=== PATIENT | female | born 1955 | race African-American/Black ===

== ENCOUNTER 2019-11-20 19:18 | Inpatient (IN) ==
[2019-11-20] MEDS ORDERED: ZOFRAN IV ONE ×2 (20:00→22:31)
[2019-11-20] MEDS ORDERED: NS 1,000 ML IV ONE (20:00)
--- NOTE | 2019-11-20 20:51 | PROVIDER DOCUMENTATION ---
This chart was entered by Yolis Cochran Scribe, acting as scribe for Ese Leyva MD. HPI-Abdominal Pain/GI Problem - General Chief Complaint: Abdominal Pain Stated Complaint: abd pain Time Seen by Provider: 11/20/19 19:30 Source: patient Allergies/Adverse Reactions: Patient Allergies Allergy/AdvReac Type Severity Reaction Status Date / Time No Known Allergies Allergy Verified 04/12/15 12:24 Home Medications: Home Medication List Medication Instructions Recorded Confirmed Last Taken Type Dicyclomine [Bentyl] 10 mg PO PRN PRN 04/08/15 11/20/19 04/05/15 01:00 History Zolpidem [Ambien] 10 mg PO QHS PRN 04/08/15 11/20/19 2 Weeks Ago History ~06/22/16 Metformin E.r. [Glucophage Xr] 500 mg PO DAILY #30 tablet 07/13/16 11/20/19 Unknown Rx Ondansetron HCl [Zofran] 4 mg PO Q6H PRN #30 tablet 07/13/16 11/20/19 Unknown Rx Pantoprazole [Protonix] 40 mg PO DAILY@0700 #30 tablet 07/13/16 11/20/19 Unknown Rx - History of Present Illness-ABD Nature of Presenting Problems: pt is a 64 yr old female presenting via EMS with 4 day complaint of low abdominal pain, nausea, vomiting and constipation. pt reports she was seen by PCP yesterday for same, dx as stomach virus, no medications given. pt reports pain worsening. Abdominal Pain Onset Location: reports: other (low abdomen) Pain Radiation: reports: no radiation Quality of Pain: reports: aching, fullness, pressure Severity in ED: reports: moderate Onset/Duration: reports: 4 days ago Timing: reports: still present, getting worse Activities at Onset: reports: rest Exposure to sick contacts?: No Modifying Factors: improves with: nothing Associated Symptoms: reports: constipation, nausea, vomiting. denies: diarrhea, fever/chills, genitourinary problems Last BM: 4 days ago Dark Stools Present?: reports: none noticed Rectal Bleeding: reports: none Rectal Pain: reports: none Emesis Description: reports: clear Bruising or Bleeding Gums?: No Similar Symptoms Previously?: Yes Recently seen or treated by another doctor?: Yes ( pcp-Dr Aguilera-yesterday for same) Review of Systems - Adult - REVIEW OF SYSTEMS - ADULT Constitutional: denies: chills, fever Eyes: reports: no symptoms reported Ears, Nose, Mouth & Throat: reports: no symptoms reported Cardiovascular: denies: chest pain, palpitations, syncope Respiratory: denies: cough, dyspnea on exertion, shortness of breath Gastrointestinal: reports: abdominal pain, constipation, nausea, poor appetite, vomiting. denies: diarrhea Genitourinary: denies: dysuria, frequency, flank pain Musculoskeletal: reports: no symptoms reported Integumentary: reports: no symptoms reported Neurological: denies: dizziness/vertigo, headache/migraines, syncope Psychiatric: reports: no symptoms reported Endocrine: reports: no symptoms reported Hematologic/Lymphatic: reports: no symptoms reported Allergic/Immunologic: reports: no symptoms reported All Other Systems: Reviewed and Negative Past History - Adult - PAST MEDICAL HISTORY-ADULT Review of Records: reports: Old Records Reviewed, Nursing Assessment Review, Medications Reviewed, Social history reviewed & non-contributory. Major Childhood Illnesses: reports: denies history Cardiovascular: reports: denies history Respiratory: reports: denies history Gastrointestinal: reports: denies history Obstetrical/Gynecological: reports: denies history Genitourinary: reports: denies history Musculoskeletal: reports: denies history Neurological: reports: denies history Endocrine/Immune: reports: denies history Other Conditions: reports: denies history - IMMUNIZATION STATUS Childhood Immunizations: See Nurse Assessment Flu Vaccine: See Nurse Assessment - FAMILY HISTORY Family History: reviewed, not pertinent - SOCIAL HISTORY Smoking: denies Substance Use: denies Living Situation: alone Physical Exam-General - PHYSICAL EXAM-ADULT Initial Vital Signs Reviewed: Yes - CONSTITUTIONAL General Appearance: appears well, alert, no apparent distress - EYES Eyes: PERRL/EOMI - HEAD, EARS, NOSE, MOUTH & THROAT HENMT: normocephalic/atraumatic, moist mucous membranes, normal ENT inspection - NECK Neck: non-tender, full range of motion, supple, normal inspection - RESPIRATORY Respiratory: chest non-tender, lungs clear, normal breath sounds, no respiratory distress, no accessory muscle use - CARDIOVASCULAR Cardiovascular: normal peripheral pulses, regular rate, rhythm, no edema - GASTROINTESTINAL (ABDOMEN) Abdominal Exam: normal bowel sounds, soft, distended, tenderness (low abdomen te nderness) - LYMPHATIC Lymphatic: no adenopathy - MUSCULOSKELETAL Back Exam: normal inspection, no CVA tenderness, no vertebral tenderness Extremity: normal range of motion, non-tender, normal inspection - SKIN Integumentary: normal color, normal turgor, warm/dry - NEUROLOGIC Neurologic: grossly normal, no motor/sensory deficits - PSYCHIATRIC Psych/Mental Status: normal mood/affect Progress - PLAN OF CARE/RESULTS Progress/Plan/Lab Results: Vital Signs - 8 hr 11/20/19 19:18 Temperature 98.2 F Pulse Rate 84 Respiratory Rate 19 Blood Pressure 140/87 O2 Sat by Pulse Oximetry 100 Orders Category Date Time Status CT ABD/PELVIS W/IV CONT ONLY [CT] Stat Exams 11/20/19 20:00 Ordered CBC WITH ELECTRONIC DIFF [HEME] Stat Lab 11/20/19 19:59 Uncollected COMPREHENSIVE METABOLIC PANEL [CHEM] Stat Lab 11/20/19 19:59 Uncollected LIPASE [CHEM] Stat Lab 11/20/19 19:59 Uncollected URINALYSIS W/POSS RFLX CULT [URINALYSIS] Stat Lab 11/20/19 19:59 Uncollected URINE DRUG SCREEN Stat Lab 11/20/19 19:59 Uncollected 0.9% Sodium Chloride Inj [Ns] 1,000 ml Med 11/20/19 20:00 Active IV 999 mls/hr Ondansetron [Zofran] Med 11/20/19 20:00 Discontinued 4 mg IV NOW ONE Result Diagrams: 11/20/19 19:26 11/20/19 19:26 - CT/MRI 1 CT Study: Abdomen (EXAM: CT ABD/PELVIS W/IV CONT ONLY 11/20/2019 HISTORY: colitis TECHNIQUE: This exam was performed using automated exposure control, adjustment of mA or kV according to patient size, and/or use of iterative reconstruction technique. COMMENT: The current study is compared with the previous examination of 07/06/2016. There is minimal dependent atelectasis in the right lower lobe which was also the case previously. There is no evidence of abdominal aortic aneurysm. The mesenteric and renal arteries are patent. There is some focal fatty changes near the falciform ligament groove which was also present previously. There is diverticulosis in the colon. Small bowel is not distended. There is no evidence of nephrolithiasis. There is hydronephrosis on the right. Some prominence of the renal pelves was present previously. The appendix is not distended. There are multiple distended small bowel loops present in the left lower quadrant and pelvis. There are some prominent mesenteric nodes. The spleen adrenal glands and pancreas are unremarkable. The colon and stomach are not distended. Pelvis: The colon is located on the right side of the abdomen and there may have been previous left colectomy. There is an apparent transition in the pelvis anteriorly with some distortion of small bowel loops. The distal ileum is normal in caliber. Compared to the previous study the obstructive changes which were seen at that time appear to have been slightly more proximally located in the small bowel. There is very little normal caliber small bowel on the current study. There is free fluid in the cul-de-sac. This was also the case previously. The urinary bladder is not distended. IMPRESSION: Distal small bowel obstruction possibly due to volvulus or adhesion. Electronically signed by Romeo Stewart 11/20/2019 10:11 PM) - CONSULTS/PCP/HOSPITALIST Notification #1 *Consult/PCP/Hospitalist*: [id number] Time Discussed: 22:45 Consult Disposition: other (Admit to hospitalist, hold off on NGT unless intractable nausea and vomiting) #2 Consult: Dr Rod Time Discussed: 22:55 Consult Disposition: Admit Departure - Departure Date of Disposition Decision: 11/20/19 Time of Disposition Decision: 22:51 DIAGNOSIS: Small bowel obstruction Disposition: ADMITTED INPATIENT 09 Certified Medical Emergency: Emergent Condition: Stable Referrals and Follow-Ups: None,PCP [Primary Care Provider] - - Critical Care Note This patient required my direct & personal management of CC.: No Attestation - Physician/ CORTNEY Attestation Patient care was provided by Advanced Practice Provider:: No The physician spent face to face time with patient:: Yes Advanced Practice Provider documentation review:: Supervising physician onsite and consulted in the evaluation and care of this patient. The physician did have a face to face encounter with the patient. This chart was documented by the indicated scribe, (Yolis Cochran Scribe) and accurately reflects the services I performed and decisions made by me, Ese Leyva MD, as attested by the provider's signature.
[2019-11-20 21:14] LABS: BASO# 0.01 X1000 (0.0-0.2); BASO% 0.1 % (0.0-0.8); EOS# 0.05 X1000 (0.0-0.7); EOS% 0.7 % (0.0-10.0); HEMATOCRIT 44.7 % (37.0-47.0); HEMOGLOBIN 14.6 g/dL (12.0-16.0); IMM GRAN# 0.02 X1000 (0.0-0.04); IMM GRAN% 0.3 % (0.0-0.5); LYMPH% 30.3 % (20.5-51.1); MCH 28.9 PG (27-31); MCHC 32.7 g/dL (33-37); MCV 88.5 FL (81-99); MONO# 1.03 X1000 (0.11-0.59); MONO% 13.6 % (1.7-9.3); MPV 10.5 FL (7.4-10.4); NEUT# 4.18 X1000 (1.4-6.5); PLT 266 X1000 (130-400); RBC 5.05 XMIL (4.2-5.4); RDW 14.3 % (11.5-14.5); WBC 7.59 X1000 (4.8-10.8)
[2019-11-20 21:24] LABS: AGAP 14; ALB/GLOB RATIO 1.6; ALBUMIN 4.5 g/dL (3.5-5.0); ALKALINE PHOSPHATASE 75 U/L (32-104); BUN 19 mg/dL (8-22); CALCIUM 9.4 mg/dL (8.8-10.2); CHLORIDE 98 mmol/L (98-107); COSMO 281; CREATININE 0.8 mg/dL (0.5-0.9); ESTIMATED GFR > 60; GLUCOSE 127 mg/dL (70-104); GOT 22 U/L (10-30); GPT 21 U/L (10-36); LIPASE 13 U/L (13-60); POTASSIUM 4.7 mmol/L (3.5-5.1); SODIUM 139 mmol/L (136-145); TCO2 27 mmol/L (25-35); TOTAL BILIRUBIN 0.55 mg/dL (0.20-1.00); TOTAL PROTEIN 7.3 g/dL (6.3-8.3)
[2019-11-20 21:45] LABS: URINE SOURCE CLEAN CATCH
[2019-11-20 21:58] LABS: BILIRUBIN URINE NEGATIVE (NEGATIVE); BLOOD URINE SMALL (NEGATIVE); COLOR YELLOW; GLUCOSE URINE >1000 mg/dL (NEGATIVE); KETONE URINE 60 mg/dL (NEGATIVE); LEUKOCYTES URINE NEGATIVE (NEGATIVE); NITRITE URINE NEGATIVE (NEGATIVE); PH URINE 6.5; PROTEIN URINE 30 mg/dL (NEGATIVE); SP GRAVITY URINE 1.044; TURBIDITY URINE CLEAR (CLEAR); UR EPITHELIAL CELLS <10 /HPF (<10); URINE BACTERIA 1+ /HPF; URINE CASTS NONE SEEN; URINE CRYSTALS NONE SEEN; URINE RBC <10 /HPF (<10); URINE WBC <10 /HPF (<10); URINE YEAST NONE SEEN; UROBILINOGEN URINE 2 mg/dL (NORMAL)
--- NOTE | 2019-11-20 22:13 | Diag Imaging Result Doc PS360 ---
EXAM: CT ABD/PELVIS W/IV CONT ONLY 11/20/2019 HISTORY: colitis TECHNIQUE: This exam was performed using automated exposure control, adjustment of mA or kV according to patient size, and/or use of iterative reconstruction technique. COMMENT: The current study is compared with the previous examination of 07/06/2016. There is minimal dependent atelectasis in the right lower lobe which was also the case previously. There is no evidence of abdominal aortic aneurysm. The mesenteric and renal arteries are patent. There is some focal fatty changes near the falciform ligament groove which was also present previously. There is diverticulosis in the colon. Small bowel is not distended. There is no evidence of nephrolithiasis. There is hydronephrosis on the right. Some prominence of the renal pelves was present previously. The appendix is not distended. There are multiple distended small bowel loops present in the left lower quadrant and pelvis. There are some prominent mesenteric nodes. The spleen adrenal glands and pancreas are unremarkable. The colon and stomach are not distended. Pelvis: The colon is located on the right side of the abdomen and there may have been previous left colectomy. There is an apparent transition in the pelvis anteriorly with some distortion of small bowel loops. The distal ileum is normal in caliber. Compared to the previous study the obstructive changes which were seen at that time appear to have been slightly more proximally located in the small bowel. There is very little normal caliber small bowel on the current study. There is free fluid in the cul-de-sac. This was also the case previously. The urinary bladder is not distended. IMPRESSION: Distal small bowel obstruction possibly due to volvulus or adhesion. Electronically signed by Romeo Stewart 11/20/2019 10:11 PM
[2019-11-20 22:22] LABS: UR AMPHETAMINES QUAL NONE DETECTED (NONE DETECT); UR BARBITUATES QUAL PRESUMPTIVE POSITIVE (NONE DETECT); UR BENZODIAZEPIN QUAL NONE DETECTED (NONE DETECT); UR CANNABINOIDS QUAL NONE DETECTED (NONE DETECT); UR COCAINE QUAL NONE DETECTED (NONE DETECT); UR METHADONE QUAL NONE DETECTED (NONE DETECT); UR OPIATES QUAL NONE DETECTED (NONE DETECT); UR OXYCODONE QUAL NONE DETECTED (NONE DETECT); UR PCP QUAL NONE DETECTED (NONE DETECT)
[2019-11-20] MEDS ORDERED: MORPHINE IV ONE (22:31)
[2019-11-21] MEDS: NS 1,000 ML IV SCH ×3 (02:18→21:49)
--- NOTE | 2019-11-21 03:26 | HISTORY AND PHYSICAL ---
PRIMARY CARE PHYSICIAN: Dr. Aguilera. CHIEF COMPLAINT: Abdominal pain, nausea, vomiting x3 days. HISTORY OF PRESENTING ILLNESS: This is a 65-year-old female with a history of diabetes mellitus type 2 who presented to emergency department with 3 days history of persistent nausea, vomiting, and abdominal pain. The patient described the abdominal pain as cramping and states that she was not feeling well. The patient subsequently had come to emergency department. She had imaging done which did show a small bowel obstruction. Her case was discussed with Surgery who recommended admission for further management. At the time of my examination, patient denied any headache, fever, chills, chest pain, shortness of breath, hemoptysis, or any weight changes, but complained of nausea, vomiting, abdominal pain. PAST MEDICAL HISTORY: Includes diabetes mellitus type 2. PAST SURGICAL HISTORY: Left hemicolectomy, cholecystectomy, hernia repair, hysterectomy, breast reduction. ALLERGIES: No known drug allergies. CURRENT MEDICATIONS: Bentyl 10 mg p.o. t.i.d. p.r.n., metformin 500 mg p.o. daily, pantoprazole 40 mg p.o. daily, Ambien 10 mg p.o. at bedtime. SOCIAL HISTORY: She is a former smoker. Denies any history of alcohol or illicit drug use. FAMILY HISTORY: No history of coronary disease. REVIEW OF SYSTEMS: Fourteen point review of systems is as listed in HPI. Other systems negative. PHYSICAL EXAMINATION: GENERAL: Cooperative, friendly female. She is without any respiratory distress. VITAL SIGNS: Temperature 98.2 degrees, pulse 84, respiration 19, blood pressure 140/87. HEENT: Atraumatic, normocephalic. Extraocular movements intact. PERRLA. NECK: No masses. CHEST: Clear to auscultation. CARDIOVASCULAR: Regular rate and rhythm. ABDOMEN: Soft. Diffuse tenderness. EXTREMITIES: No edema. NEUROLOGIC: She is awake, alert, oriented x3. GENITOURINARY: No bladder distention. SKIN: Warm. LABORATORIES AND STUDIES: WBC 7.59, hemoglobin 14.6, hematocrit 44.7, platelets 266,000. Sodium 139, potassium 4.7, chloride 98, CO2 is 27, BUN is 19, creatinine 0.8, glucose 127. A CT of the abdomen and pelvis shows distal small bowel obstruction possibly due to volvulus or adhesion. ASSESSMENT: This is a 64-year-old female with a history of diabetes mellitus type 2 who presented to emergency department with 3 days history of persistent nausea, vomiting, abdominal pain. She was evaluated the emergency department. She had imaging done which did show a small bowel obstruction. Subsequently, she will need admission for further management. 1. Small bowel obstruction. 2. Diabetes mellitus type 2. PLAN: 1. We will admit patient to medical floor with telemetry. 2. We will keep patient NPO. Continue with IV fluids, antiemetics, pain control. 3. General Surgery was already consulted. 4. We will monitor blood glucose, put patient on sliding scale insulin regimen. 5. Put patient on DVT prophylaxis with SCD. 6. We will continue to follow, reassess and make further recommendation based on patient's clinical course. cc: Anson Rod MD
[2019-11-21] MEDS: HUMULIN R SUBQ SCH ×4 (06:33→21:53)
--- NOTE | 2019-11-21 07:09 | CONSULTATION ---
DATE OF CONSULTATION: 11/20/2019 SUBJECTIVE: Angelic Turner is a 64-year-old black female who presented to the emergency department with lower abdominal cramping, nausea, and some vomiting. She has had no bowel movement since Sunday, and she states she hasn't passed flatus. An abdominal CT scan has been performed, and that suggests a possible small bowel obstruction. She does have a history of diabetes. She has had previous colon surgery by Dr. Benitez years ago. It appears that she has been admitted in 2016 with these same symptoms, and they resolved without surgery. OBJECTIVE: On exam, Ms. Angelic Turner is a middle-aged black female in no acute distress, but she does have intermittent lower abdominal cramping. Her vital signs are satisfactory. She is awake and cooperative. No jaundice. No oral lesions. No cervical or supraclavicular lymphadenopathy. Her heart has a regular rate. Lungs are clear to auscultation and percussion bilaterally. She has a lower midline incision. Her abdomen is slightly distended with intermittent crampy pain. She had no costovertebral tenderness. Rectal exam was not performed. She does have palpable peripheral pulses. No peripheral edema. Neurologically, she is alert and oriented x3 and appropriate. LABORATORY: Her labs are within normal limits. IMPRESSION: Possible small bowel obstruction status post colon surgery. PLAN: I will ask the hospitalist to admit her, and resuscitate her with IV fluids. Control her diabetes and place an NG tube if she continues to have nausea and vomiting. We will follow her with daily exams, and if symptomatic and she does not improve, she will need exploratory laparotomy. cc: Argelia Dover MD
[2019-11-21 08:26] LABS: BASO# 0.01 X1000 (0.0-0.2); BASO% 0.1 % (0.0-0.8); EOS# 0.02 X1000 (0.0-0.7); EOS% 0.3 % (0.0-10.0); HEMATOCRIT 43.9 % (37.0-47.0); LYMPH% 24.2 % (20.5-51.1); MCH 28.3 PG (27-31); MCHC 31.9 g/dL (33-37); MCV 88.9 FL (81-99); MONO% 12.1 % (1.7-9.3); MPV 10.3 FL (7.4-10.4); NEUT# 4.71 X1000 (1.4-6.5); NEUT% 63.3 % (42.2-75.2); PLT 244 X1000 (130-400); RBC 4.94 XMIL (4.2-5.4); RDW 14.1 % (11.5-14.5); WBC 7.44 X1000 (4.8-10.8)
[2019-11-21 08:45] LABS: AGAP 15; BUN 15 mg/dL (8-22); CALCIUM 8.7 mg/dL (8.8-10.2); CHLORIDE 103 mmol/L (98-107); COSMO 282; CREATININE 0.6 mg/dL (0.5-0.9); ESTIMATED GFR > 60; GLUCOSE 123 mg/dL (70-104); POTASSIUM 4.3 mmol/L (3.5-5.1); SODIUM 140 mmol/L (136-145); TCO2 22 mmol/L (25-35)
[2019-11-21] MEDS: MORPHINE IV PRN (08:50)
[2019-11-21] MEDS: ZOFRAN IV PRN (09:00)
--- NOTE | 2019-11-21 12:32 | PROGRESS NOTE ---
DATE: 11/21/2019 SUBJECTIVE: Ms. Angelic Turner was admitted through the emergency department last night with lower abdominal pain and a CT scan suggesting small bowel obstruction. She is a 64-year-old black female, and this morning she states that she feels better and has had some flatus. She has not had a bowel movement. She has had no nausea or vomiting and she does not have an NG tube in place. This morning, her white blood cell count continues to be normal. Her hematocrit is 44%, BUN 15 and creatinine 0.6. Sugar seems to be satisfactory. She states she is having no lower abdominal crampy pain this morning. Her heart rate is 79, blood pressure 137/68, O2 saturation 99%. She is afebrile. She is voiding without difficulty. She is walking the halls. On exam, she may still have some distention of her lower abdomen, but it is not tightly distended. PLAN: I will start her on clear liquids and Dr. Gold is on for the group to check on this weekend. cc: Argelia Dover MD
[2019-11-22] MEDS: ZOFRAN IV PRN ×2 (00:20→13:54)
[2019-11-22] MEDS: MORPHINE IV PRN ×2 (00:20→13:53)
[2019-11-22] MEDS: HUMULIN R SUBQ SCH ×4 (06:15→21:37)
[2019-11-22 07:08] LABS: BASO# 0.01 X1000 (0.0-0.2); BASO% 0.2 % (0.0-0.8); EOS# 0.03 X1000 (0.0-0.7); EOS% 0.5 % (0.0-10.0); HEMATOCRIT 39.4 % (37.0-47.0); HEMOGLOBIN 12.5 g/dL (12.0-16.0); LYMPH# 2.45 X1000 (1.2-3.4); LYMPH% 38.6 % (20.5-51.1); MCH 28.3 PG (27-31); MCHC 31.7 g/dL (33-37); MCV 89.1 FL (81-99); MONO# 0.88 X1000 (0.11-0.59); MONO% 13.9 % (1.7-9.3); MPV 10.3 FL (7.4-10.4); NEUT# 2.97 X1000 (1.4-6.5); NEUT% 46.8 % (42.2-75.2); PLT 215 X1000 (130-400); RBC 4.42 XMIL (4.2-5.4); RDW 13.7 % (11.5-14.5); WBC 6.34 X1000 (4.8-10.8)
[2019-11-22 07:30] LABS: AGAP 11; ALBUMIN 3.7 g/dL (3.5-5.0); BUN 11 mg/dL (8-22); CALCIUM 8.8 mg/dL (8.8-10.2); CHLORIDE 105 mmol/L (98-107); COSMO 281; CREATININE 0.6 mg/dL (0.5-0.9); ESTIMATED GFR > 60; GLUCOSE 104 mg/dL (70-104); PHOSPHORUS 2.4 mg/dL (2.7-4.5); SODIUM 141 mmol/L (136-145); TCO2 25 mmol/L (25-35)
--- NOTE | 2019-11-22 07:45 | GENERAL SURGERY PROGRESS NOTE ---
DATE: 11/22/2019 SUBJECTIVE: Patient seems to be doing okay. She says she is not any worse. She has not really passed gas but she is not sick to her stomach. OBJECTIVE: Vital Signs: Patient is currently afebrile. Her vital signs are stable. General: No acute distress. HEENT: Normocephalic, atraumatic. Pupils equal, round, reactive to light. Mucous membranes moist. Oropharynx benign. Neck: Supple. Trachea midline. Cardiovascular: Regular rate and rhythm. Lungs: Grossly clear. Abdomen: Soft, nondistended. No real significant tenderness to palpation. Bowel sounds are auscultated although somewhat faint. Extremities: Moves all extremities. Neurologic: Grossly intact. Skin: No signs of jaundice. Vascular: All extremities perfused. LABORATORY DATA: None this morning. IMAGING: None this morning. ASSESSMENT AND PLAN: A 64-year-old female with a small-bowel obstruction. Small-bowel obstruction. At this time, I think she is improving clinically. We will start her on clear liquid. Had a discussion with her that if she gets sick to her stomach to stop. At this point, we will just continue to monitor and give supportive care. cc: Lincoln Gold MD
[2019-11-22] MEDS ORDERED: SODIUM PHOSPHATE 35 MMOL in NS 250 ML IV ONE (09:00)
--- NOTE | 2019-11-22 10:26 | PROGRESS NOTE ---
DATE: 11/22/2019 SUBJECTIVE: Patient reports feeling fine. She is not vomiting or feeling nauseated any more. OBJECTIVE: Vital Signs: Temperature 97.6 degrees, heart rate 80, respiratory rate 16, blood pressure 130/78, O2 saturation 100% on room air. General: This is a 64-year-old female, lying in bed, in no acute distress. Cardiovascular: S1 and S2 heard. No murmurs, gallops, or rubs. Regular rate and rhythm. Respiratory: Clear bilaterally to auscultation. No work of breathing or using accessory muscles. Abdomen: Soft, nontender to palpation. Bowel sounds present. No organomegaly. Extremities: No clubbing, cyanosis, or edema. Peripheral pulses present in both legs. Neurological: Patient alert and oriented x3. Moves 4 extremities. LABORATORY DATA: CBC and BMP is completely unremarkable. ASSESSMENT AND PLAN: 1. Small-bowel obstruction. Actually this patient is feeling better. She is not vomiting anymore. Just in case, we are going to check an abdomen x-ray and see how this patient does. Her labs are completely normal. We will continue with the same management. Dr. Gold from General Surgery has indicated a clear liquid diet for this patient. We will see how this patient does. 2. Diabetes mellitus type 2. Continue with sliding scale insulin and Accu-Cheks before meals and also at bedtime. cc: Conner Morales MD
--- NOTE | 2019-11-22 15:22 | Diag Imaging Result Doc PS360 ---
EXAM: ABDOMEN FLAT/UPRIGHT HISTORY: sbo TECHNIQUE: Two views COMPARISON: 07/11/2016 FINDINGS: There are dilated bowel loops with air-fluid levels. Stool is found in the proximal colon. No organomegaly. Surgical clips in the mid right abdomen. Mild scoliosis with degenerative spine changes. IMPRESSION: Distal small bowel obstruction Electronically signed by Vinod Schultz 11/22/2019 3:19 PM
[2019-11-23] MEDS: MORPHINE IV PRN ×3 (01:37→21:39)
[2019-11-23] MEDS: ZOFRAN IV PRN ×3 (01:38→21:45)
[2019-11-23] MEDS: HUMULIN R SUBQ SCH ×4 (06:12→21:46)
--- NOTE | 2019-11-23 07:04 | GENERAL SURGERY PROGRESS NOTE ---
DATE: 11/23/2019 SUBJECTIVE: The patient says she is feeling about the same, but she is not any worse. She has not passed any gas, but she is not sick to her stomach with the liquids. She had an abdominal film yesterday that showed some air-fluid levels. OBJECTIVE: Vital Signs: The patient is currently afebrile. Her vital signs are stable. General: No acute distress. HEENT: Normocephalic, atraumatic. Pupils equal, round, reactive to light. Mucous membranes moist. Oropharynx benign. Neck: Supple. Trachea midline. Cardiovascular: Regular rate and rhythm. Lungs: Grossly clear. Abdomen: Soft. No real significant tenderness to palpation. The patient reports that she seems like it is less distended overall. Very faint bowel sounds auscultated. Extremities: Moves all extremities. Neurologic: Grossly intact. Skin: No signs of jaundice. Vascular: All extremities perfused. LABORATORY DATA: Reviewed from yesterday. White blood cell count is not elevated. Hematocrit is normal. There is no left shift. ASSESSMENT AND PLAN: A 64-year-old female with small-bowel obstruction. Small-bowel obstruction. At this time, she is about the same. Will keep her on a clear liquid diet, and I again discussed with her that if she gets sick to her stomach to let us know, and will stop her diet. If she does not seem to improve, may need to consider a small bowel series in the near future, but otherwise will continue current treatment. cc: Lincoln Gold MD
[2019-11-23 08:08] LABS: BASO# 0.01 X1000 (0.0-0.2); BASO% 0.1 % (0.0-0.8); EOS# 0.05 X1000 (0.0-0.7); EOS% 0.7 % (0.0-10.0); HEMATOCRIT 39.5 % (37.0-47.0); HEMOGLOBIN 12.7 g/dL (12.0-16.0); LYMPH# 2.09 X1000 (1.2-3.4); LYMPH% 31.1 % (20.5-51.1); MCH 28.2 PG (27-31); MCHC 32.2 g/dL (33-37); MCV 87.8 FL (81-99); MONO# 0.91 X1000 (0.11-0.59); MONO% 13.5 % (1.7-9.3); MPV 10.4 FL (7.4-10.4); NEUT# 3.67 X1000 (1.4-6.5); NEUT% 54.6 % (42.2-75.2); PLT 232 X1000 (130-400); RDW 13.5 % (11.5-14.5); WBC 6.73 X1000 (4.8-10.8)
[2019-11-23 08:21] LABS: AGAP 13; BUN 9 mg/dL (8-22); CHLORIDE 99 mmol/L (98-107); COSMO 273; CREATININE 0.7 mg/dL (0.5-0.9); ESTIMATED GFR > 60; GLUCOSE 109 mg/dL (70-104); POTASSIUM 3.5 mmol/L (3.5-5.1); SODIUM 137 mmol/L (136-145); TCO2 25 mmol/L (25-35)
--- NOTE | 2019-11-23 10:57 | PROGRESS NOTE ---
DATE: 11/23/2019 SUBJECTIVE: The patient reports feeling okay. Actually, she is passing gases. She is not feeling nauseated, and she ate clear liquid diet okay, and she wants to have her diet advanced. OBJECTIVE: Vital Signs: Temperature 97.8 degrees, heart rate 72, respiratory rate 22, blood pressure 123/50, O2 saturation 95% on room. General: This is a 64-year-old, female, lying in bed in no acute distress. Cardiovascular: S1, S2 heard. No murmurs, gallops, or rubs. Regular rate and rhythm. Respiratory: Clear bilaterally to auscultation. No work of breathing or using accessory muscles. Abdomen: Soft, nontender to palpation. Bowel sounds present. No organomegaly. Extremities: No clubbing, cyanosis, or edema. Peripheral pulses present in both legs. Neurological: The patient is alert and oriented x3. Moves all 4 extremities. LABORATORY DATA: Reviewed. ASSESSMENT AND PLAN: 1. Small-bowel obstruction. Even though the x-ray yesterday showed distal small-bowel obstruction with air-fluid levels, clinically this patient is passing gas and is feeling less nauseated, so at this time, what I am planning to do is to advanced the diet to gastrointestinal soft as per patient request, and will provide some stool softeners, and if she is able to eat better tomorrow and have a bowel movement, she can be discharged. 2. General Surgery is following this patient. Will follow recommendations. 3. Diabetes mellitus type 2. Will continue with sliding scale insulin and Accu-Chek before meals and also at bedtime. cc: Conner Morales MD
[2019-11-23] MEDS: LACTULOSE PO SCH ×2 (11:26→21:46)
[2019-11-24] MEDS: HUMULIN R SUBQ SCH ×4 (07:17→23:47)
--- NOTE | 2019-11-24 08:17 | PROGRESS NOTE ---
DATE: 11/24/2019 SUBJECTIVE: Ms. Turner is now hospital day 5. She was admitted on 11/20/2019 through the emergency department with abdominal distention and crampy lower abdominal pain. A CT scan suggested a small bowel obstruction. She was admitted. She has been treated without an NG tube. She has had some flatus, but no bowel movement. A flat and upright abdominal film over the weekend continued to show abnormal air-fluid levels. This morning when I evaluated her, her abdomen again was distended. The last pain medicine she took was yesterday. She has had previous colon surgery per Dr. Benitez. Her white blood cell count remains normal. Her electrolytes are within normal limits. BUN is 9, creatinine 0.7. She stated that she vomited some tea yesterday. She did not eat her GI soft diet. She has been on liquids most of her hospitalization. Her heart rate this morning 73, blood pressure 122/64, O2 saturation 99%. She is afebrile. She is voiding without difficulty. She is awake and cooperative. It does appear that she is getting Zofran and morphine regularly. I discussed treatment options with her, including Gastrografin enema or small bowel series versus exploratory laparotomy. I feel that she has a partial obstruction, which has kept her hospitalized and has not allowed us to increase her diet. She has been good about being active. We will plan on taking her to surgery for exploratory laparotomy this afternoon. I have discussed that in detail with her and her at the bedside this morning. Specifically, I discussed the operation. I described the operation as a major operation to her requiring hospitalization throughout this week. She understands she will have a midline incision. I also discussed risks of surgery, which include bleeding, infection, injury to bowel, possible resection of some bowel, possible ostomy. She understands the need for surgery and its risks and wants to proceed. cc: Argelia Dover MD
[2019-11-24 08:47] LABS: BASO# 0.01 X1000 (0.0-0.2); BASO% 0.1 % (0.0-0.8); EOS# 0.04 X1000 (0.0-0.7); EOS% 0.5 % (0.0-10.0); HEMATOCRIT 39.7 % (37.0-47.0); HEMOGLOBIN 12.8 g/dL (12.0-16.0); LYMPH# 2.34 X1000 (1.2-3.4); LYMPH% 30.5 % (20.5-51.1); MCH 28.3 PG (27-31); MCHC 32.2 g/dL (33-37); MCV 87.6 FL (81-99); MPV 10.2 FL (7.4-10.4); NEUT# 4.28 X1000 (1.4-6.5); NEUT% 55.9 % (42.2-75.2); PLT 241 X1000 (130-400); RBC 4.53 XMIL (4.2-5.4); RDW 13.6 % (11.5-14.5); WBC 7.67 X1000 (4.8-10.8)
[2019-11-24 09:27] LABS: AGAP 14; BUN 9 mg/dL (8-22); CALCIUM 9.1 mg/dL (8.8-10.2); CHLORIDE 99 mmol/L (98-107); COSMO 280; CREATININE 0.6 mg/dL (0.5-0.9); ESTIMATED GFR > 60; GLUCOSE 102 mg/dL (70-104); POTASSIUM 3.7 mmol/L (3.5-5.1); SODIUM 141 mmol/L (136-145); TCO2 28 mmol/L (25-35)
[2019-11-24] MEDS: LACTULOSE PO SCH ×2 (10:17→23:48)
--- NOTE | 2019-11-24 12:07 | PROGRESS NOTE ---
DATE: 11/24/2019 SUBJECTIVE: The patient was not able to eat his GI soft diet. He continues to be nauseated. He is passing gas but not any bowel movement. OBJECTIVE: Vital Signs: Temperature 98.1 degrees, heart rate 73, respiratory rate 18, blood pressure 122/64, O2 saturation 99% on room air. General Examination: This is a 64-year-old, female lying in bed, in no acute distress. Cardiovascular Examination: S1 and S2 heard. No murmurs, gallops, or rubs. Regular rate and rhythm. Respiratory Examination: Clear bilaterally to auscultation. No work of breathing or using accessory muscles. Abdomen: Soft. Nontender to palpation. Bowel sounds hypoactive but present. No organomegaly noted. Laboratory Data: Reviewed. ASSESSMENT AND PLAN: 1. Small bowel obstruction. Dr. Dover from general surgery has evaluated this patient and he thinks that this patient needs to be taken to the operating room for surgery. At this point, we will continue following recommendations from him. 2. Diabetes mellitus type 2. We will do a sliding scale insulin and Accu-Cheks before meals and also at bedtime. cc: Conner Morales MD
[2019-11-24] MEDS ORDERED: VERSED ONE ×2 (14:34→21:13)
[2019-11-24] MEDS ORDERED: FENTANYL ONE (14:34)
[2019-11-24] MEDS ORDERED: DIPRIVAN 1% ONE (14:34)
[2019-11-24] MEDS ORDERED: KEFZOL 1 GM/D5W 1 GM/50 ML IVPB ONE (14:58)
[2019-11-24] MEDS ORDERED: EXPAREL 1.3% ONE (15:02)
[2019-11-24] MEDS ORDERED: MARCAINE 0.25% PF ONE (15:02)
[2019-11-24] MEDS ORDERED: ZOFRAN ONE (16:53)
[2019-11-24] MEDS ORDERED: STERILE WATER INJ. ONE (16:53)
[2019-11-24] MEDS ORDERED: NORCURON ONE (16:53)
[2019-11-24] MEDS ORDERED: QUELICIN (DOSE) ONE (16:53)
[2019-11-24] MEDS ORDERED: DECADRON ONE (16:53)
[2019-11-24 17:36] LABS: URINE SOURCE CATH
[2019-11-24 18:11] LABS: BILIRUBIN URINE NEGATIVE (NEGATIVE); BLOOD URINE NEGATIVE (NEGATIVE); COLOR YELLOW; GLUCOSE URINE 300 mg/dL (NEGATIVE); KETONE URINE 100 mg/dL (NEGATIVE); LEUKOCYTES URINE NEGATIVE (NEGATIVE); NITRITE URINE NEGATIVE (NEGATIVE); PH URINE 6.5; PROTEIN URINE TRACE mg/dL (NEGATIVE); SP GRAVITY URINE 1.021; TURBIDITY URINE CLEAR (CLEAR); UROBILINOGEN URINE 2 mg/dL (NORMAL)
[2019-11-24 18:14] LABS: UR EPITHELIAL CELLS <10 /HPF (<10); URINE BACTERIA NEGATIVE /HPF; URINE RBC <10 /HPF (<10); URINE WBC <10 /HPF (<10)
[2019-11-24] MEDS ORDERED: ALBUMIN 25% ONE (18:42)
[2019-11-24] MEDS: ZOSYN 3.375 GM in NS 50 ML IV SCH (18:50)
[2019-11-24] MEDS ORDERED: EPHEDRINE ONE (21:32)
[2019-11-24] MEDS: DIPRIVAN 1% 1,000 MG/100 ML BOTTLE IV SCH (22:17)
[2019-11-24] MEDS ORDERED: DIPRIVAN 1% 1,000 MG/100 ML BOTTLE ONE (22:20)
[2019-11-24 22:21] LABS: I-STAT BE -6 mmoll (-2-3); I-STAT GLUCOSE 140 mg/dL (70-105); I-STAT HEMOGLOBIN 8.2 g/dL (11.5-17.5); I-STAT K 3.7 mmoll (3.5-4.9); I-STAT SODIUM 140 mmoll (138-146); I-STAT TCO2 22 mmoll (23-27); I-STAT pH 7.265 (7.350-7.450)
[2019-11-24] MEDS ORDERED: NS 500 ML ONE (22:38)
[2019-11-24] MEDS ORDERED: NS 1,000 ML IV SCH (23:00)
[2019-11-24] MEDS ORDERED: MORPHINE IV PRN (23:01)
[2019-11-24] MEDS ORDERED: ZOSYN 3.375 GM in NS 50 ML IV SCH (23:15)
[2019-11-24] MEDS: OFIRMEV 1000 MG/ISOTONIC SOLN 1,000 MG/100 ML BOTTLE IV SCH (23:55)
[2019-11-25] MEDS: ZOSYN 3.375 GM in NS 50 ML IV SCH ×4 (00:56→20:27)
[2019-11-25] MEDS: DIPRIVAN 1% 1,000 MG/100 ML BOTTLE IV SCH ×2 (01:07→05:37)
[2019-11-25] MEDS: OFIRMEV 1000 MG/ISOTONIC SOLN 1,000 MG/100 ML BOTTLE IV SCH ×4 (05:33→23:20)
[2019-11-25 06:20] LABS: BASO# 0.01 X1000 (0.0-0.2); BASO% 0.2 % (0.0-0.8); HEMATOCRIT 42.5 % (37.0-47.0); HEMOGLOBIN 13.7 g/dL (12.0-16.0); LYMPH# 0.89 X1000 (1.2-3.4); LYMPH% 20.1 % (20.5-51.1); MCH 27.7 PG (27-31); MCHC 32.2 g/dL (33-37); MONO# 0.38 X1000 (0.11-0.59); MONO% 8.6 % (1.7-9.3); MPV 10.7 FL (7.4-10.4); NEUT# 3.15 X1000 (1.4-6.5); NEUT% 71.1 % (42.2-75.2); PLT 188 X1000 (130-400); RBC 4.94 XMIL (4.2-5.4); RDW 14.8 % (11.5-14.5); WBC 4.43 X1000 (4.8-10.8)
[2019-11-25] MEDS: HUMULIN R SUBQ SCH ×4 (06:23→20:57)
[2019-11-25 06:25] LABS: ALLEN TEST YES; BE -8.3 mmoll (-3.0-3.0); BLOOD TYPE ARTERIAL; HCO3-(ACT) 18.5 mmoll (20.0-26.0); PCO2(98.6) 30 mmHg (35-45); PO2(98.6) 179 mmHg (60-100); SAMPLE BLOOD; SRATE 14 BPM; TVOL 500 mL; pH(98.6) 7.34 (7.35-7.45)
[2019-11-25 06:26] LABS: MODALITY VENTILATOR
--- NOTE | 2019-11-25 07:01 | Diag Imaging Result Doc PS360 ---
EXAM: CHEST-PORTABLE HISTORY: central line placement TECHNIQUE: Single view COMPARISON: 07/10/2016 FINDINGS: The lungs are well expanded. The endotracheal tube, nasogastric tube, and right subclavian lines are in good position. No pneumothorax. The heart is not enlarged. The vessels are not distended. There are no infiltrates. No effusion identified. IMPRESSION: No postprocedural pneumothorax. Electronically signed by Vinod Schultz 11/25/2019 5:29 AM
--- NOTE | 2019-11-25 07:02 | Diag Imaging Result Doc PS360 ---
EXAM: CHEST-PORTABLE HISTORY: Vent TECHNIQUE: Single view COMPARISON: 11/24/2019 FINDINGS: No change in the endotracheal tube, the nasogastric tube, or in the right subclavian portacatheter. No pneumothorax. The lungs are well expanded. No cardiomegaly. Minimal atelectasis versus a tiny infiltrate in the right costophrenic angle. IMPRESSION: Development of atelectasis versus a tiny infiltrate in the right costophrenic angle. Electronically signed by Vinod Schultz 11/25/2019 6:44 AM
--- NOTE | 2019-11-25 07:22 | OPERATIVE NOTE ---
PROCEDURE DATE: 11/24/2019 PREOPERATIVE DIAGNOSIS: Small bowel obstruction. POSTOPERATIVE DIAGNOSIS: 1. Small bowel obstruction. 2. Right subclavian central venous line. PRINCIPAL PROCEDURE: 1. Extensive lysis of adhesions lasting 5 hours. 2. Small-bowel resection with primary end-to-end anastomosis. 3. Repair of small-bowel enterotomy. SURGEON: Argelia Dover MD. OVERHEAD GARAGE DOOR HANGER: Dr. Blanca Joiner ANESTHESIA: General. ESTIMATED BLOOD LOSS: 500 mL. DRAINS: None. INDICATIONS: Ms. Angelic Turner is a 64-year-old black female who has had previous abdominal surgery including a colon resection, a right inguinal hernia repair, and COTTON BREEDER surgery. She was admitted last week through the emergency department with crampy lower abdominal pain, nausea and vomiting. We treated her without an NG tube in the hospital but she remains distended. She requires intermittent pain medication. She was having some flatus but no bowel movement and her x- rays remained abnormal. It was felt that she had a high-grade small bowel obstruction and lysis of adhesions was recommended. FINDINGS: She had malignant intraabdominal adhesions. Her bowel was tightly adhered in the pelvis, retroperitoneum, and tightly adhered to itself with interloop adhesions. It was tightly adhered to what remained of the colon which was the ascending colon turned down to a proximal rectal anastomosis. It took us 5 hours to lyse these very tight difficult adhesions. We made multiple enterotomies trying to mobilize the bowel. We had to resect a segment of small bowel and we also had to repair an enterotomy. The bowel was chronically dilated. There was an area of bowel that appeared to be ischemic which was in our resection. The bowel wall was thin. I closed the enterotomy and I performed and end-to-end anastomosis just as carefully as I could but I worry about small-bowel fistula. We did have contamination intra-abdominally when we tore the bowel during dissection. We took a lot of time to irrigate the abdomen at the end of the procedure. DESCRIPTION OF PROCEDURE: The patient was brought to the operating room, placed supine, received general anesthesia, and was intubated. She received a TAP block by our anesthesiologist. Dean catheter tube was placed. Her abdomen was prepped and draped within the sterile field. I used an Ioban on the skin and we reopened her midline incision from her previous colon surgery. We cut out the scar as we made an incision in the skin. The incision was carried down through the skin and subcutaneous tissue to the midline fascia. We carefully entered the abdomen by incising the fascia at its midline using cautery. We immediately interrupted very difficult incisions. Her greater omentum laid superficially over her small bowel. Her small bowel was tightly adhered in the pelvis, both sides of the abdomen to the anterior abdominal wall, and to the retroperitoneum. Her length of her small bowel appeared to be normal. She had a previous colon resection which included the left colon, transverse colon and the ascending colon was turned down and sewn to her rectum. It took us 5 hours of lysis of adhesions. We injured the bowel multiple times and there was gross contamination intra-abdominally. We click quickly closed our iatrogenic enterotomies when they occurred. We used cautery and scissors to lyse these adhesions, and it was very difficult. Once we had lysed all of the adhesions throughout the length of the small bowel, there was a segment of mid small bowel that we had to remove because of multiple enterotomies, chronic dilatation and even ischemic looking segment of bowel. I performed an end small bowel to end small bowel double-layer sewn anastomosis between the segments. There was an enterotomy more distally in the ilium that we closed transversely again in 2 layers, the posterior layer with interrupted 3-0 silk Lembert stitches. This was reinforced with a running interlocking 3-0 Vicryl stitch which was continued on the anterior abdominal wall as a Madalyn stitch and then we reinforced the Madalyn stitch with interrupted 3-0 silk Lembert stitches. There was no tension on our anastomosis. The bowel wall was thin and hurt, and we just hope that it will heal. My enterotomy I closed transversely again in 2 layers with 3-0 Vicryl stitches in a [place] stitch to invert the edge of the bowel and then I used interrupted 3-0 silk Lembert stitches to close the enterotomy. We thoroughly irrigated the abdomen with warm irrigation. We placed the bowel back in its anatomically correct position. What was left of the greater omentum was placed over the surface of the small bowel. I checked the position of the NG tube and I closed the midline incision with running #1 PDS suture. We loosely closed the skin with a skin clip virology teacher, and dressings were applied. I then directed my attention to a central venous line and I placed a right subclavian central venous line. A guidewire was placed through the needle into the right side of the heart. The 18- gauge needle was removed. A dilator was placed over the guidewire, and then a triple-lumen central venous line was placed over the guidewire into the right side of the heart. It was secured to the skin with two 2-0 silk stitches. The guidewire was removed. Each port was flushed with saline and was functioning well. Dressings were applied. She remained hemodynamically stable. We do plan to give her 2 units of packed red blood cells. She will remain intubated and go to the ICU in critical condition with an NG tube and Dean catheter tube. I spoke with Dr. Titus Ruiz, our critical care physician, this evening about her. I was also terri with her about the difficulty of the case and me worrying about small bowel fistula and her making it through the surgery. cc: Argelia Dover MD [facility]
[2019-11-25 07:49] LABS: AGAP 19; ALBUMIN 2.8 g/dL (3.5-5.0); BUN 13 mg/dL (8-22); CALCIUM 7.4 mg/dL (8.8-10.2); CHLORIDE 107 mmol/L (98-107); COSMO 289; CREATININE 0.8 mg/dL (0.5-0.9); ESTIMATED GFR > 60; GLUCOSE 211 mg/dL (70-104); PHOSPHORUS 3.6 mg/dL (2.7-4.5); POTASSIUM 3.3 mmol/L (3.5-5.1); SODIUM 142 mmol/L (136-145); TCO2 16 mmol/L (25-35)
[2019-11-25 07:50] LABS: LYMPHS 17 % (21-51); MONO 6 % (1-9); SEGS 77 % (42-75)
--- NOTE | 2019-11-25 08:05 | PROGRESS NOTE ---
DATE: 11/25/2019 SUBJECTIVE: Patient is sedated and intubated. It was not possible to extubate after she had surgery yesterday. OBJECTIVE: Vital Signs: Temperature 97.8, heart rate 90 and respiratory 17. Blood pressure 92/53. O2 saturation 100% on mechanical ventilator. FiO2 of 40%. General: This is a 64-year- old female lying in bed in no acute distress. Sedated and intubated. Cardiovascular: S1 and S2 heard. No murmurs, gallops, or rubs. Regular rate and rhythm. Respirations: Clear bilaterally to auscultation. No work of breathing or using accessory muscles. Abdomen: Soft. There is a midline surgical wound covered by dressing, clean and dry. Extremities: There is no clubbing, cyanosis, or edema. Peripheral pulses present in both legs. Neurological: The patient is sedated and intubated. LABORATORY DATA: Pending at the time of my dictation. ASSESSMENT AND PLAN: 1. Acute respiratory failure. 2. Small bowel obstruction status post exploratory laparotomy with lysis of adhesions. 3. Diabetes mellitus type 2. PLAN: At this point, the patient is intubated. We have seen the patient is on PEEP of 5 with FiO2 40% so Pulmonary has been consulted. We will see if they are going to try to do weaning trial today. Surgery is following this patient. We will follow recommendations. cc: Conner Morales MD
[2019-11-25 09:37] LABS: ALLEN TEST YES; BE -8.1 mmoll (-3.0-3.0); BLOOD TYPE ARTERIAL; HCO3-(ACT) 18.6 mmoll (20.0-26.0); O2(CT) 19.9 mL/dL (15.0-23.0); O2HB 96.5 % (95.0-99.0); PCO2(98.6) 28 mmHg (35-45); PO2(98.6) 92 mmHg (60-100); SAMPLE BLOOD; THB 14.6 g/dL (11.5-17.4); pH(98.6) 7.36 (7.35-7.45)
[2019-11-25 09:39] LABS: MODALITY VENTILATOR
[2019-11-25] MEDS ORDERED: LR 1,000 ML IV ONE (09:44)
[2019-11-25] MEDS: LACTULOSE PO SCH ×2 (09:49→21:55)
[2019-11-25] MEDS: CLINIMIX E 4.25%-5% SOLUTION 1,000 ML IV SCH ×2 (09:55→19:50)
[2019-11-25] MEDS: PROTONIX IV SCH (09:56)
[2019-11-25] MEDS: LOVENOX SUBQ SCH (09:56)
--- NOTE | 2019-11-25 10:04 | PULMONOLOGY CONSULTATION ---
DATE: 11/25/2019 REQUESTING CLINICIAN: Dr. Joe Dover. REASON FOR CONSULTATION: Critically ill patient, status post prolonged operative procedure. HISTORY OF PRESENT ILLNESS: Ms. Turner is a 64-year-old, black female with a history of tobacco use (reported as nonsmoker during this admission but reported as active smoker in 2016) who underwent a left hemicolectomy in April of 2015 for recurrent diverticulitis. She did require admission to the hospital in 2016 with a partial small-bowel obstruction, which resolved without surgery. The patient presented to the emergency room on 11/20/2019 with a 4-day history of abdominal pain, nausea, vomiting, and constipation. CT scan was consistent with a distal small- bowel obstruction due to volvulus or adhesion. The patient was observed for about 5 days without clinical improvement. She underwent a laparotomy yesterday which was prolonged due to extensive adhesions in the abdomen, requiring repair of enterotomies as well as small bowel resection. She is currently on mechanical ventilation. PAST MEDICAL HISTORY/PROBLEM LIST: 1. Left hemicolectomy as per above. 2. Diabetes mellitus. 3. Status post cholecystectomy. 4. Status post hysterectomy. 5. Status post breast reduction. 6. Gastroesophageal reflux disease. SOCIAL HISTORY: Prior tobacco use as noted in the HPI. No recent pulmonary function studies available for review. No alcohol or drug use noted. FAMILY HISTORY: From prior admissions and scanned H and Ps were reviewed, and were of limited information. REVIEW OF SYSTEMS: Cannot be obtained. PHYSICAL EXAMINATION: General: Reveals a well-developed, well-nourished female who appears her stated age, resting comfortably, on mechanical ventilation. She was placed on a sedation vacation. She does open her eyes. Blood pressure 105/61, heart rate 100, respiratory rate 29, oxygen saturation 97%. HEENT: Pupils are equal and reactive. Oropharynx appears clear. Neck: Supple. Chest: Reveals good air entry bilaterally without wheezing or rhonchi. Cardiac Examination: S1, S2. Regular rate. Abdomen: Soft. Surgical dressings are in place and appear dry. No bowel sounds present. Extremities: Without cyanosis or edema. LABORATORIES: Chest x-ray reveals minimal atelectasis at the right base but otherwise clear lung coy. White blood count 4.43, hemoglobin 13.7, platelet count 188,000, with a normal differential except for reduction in lymphocytes. Sodium 142, potassium 3.3, chloride 107, bicarbonate 16, anion gap 19, BUN 13, creatinine 0.8. Arterial blood gas reveals a pH of 7.36, pCO2 of 28, PO2 of 92, with a lactate of 3.1. IMPRESSION: A 64-year-old with small bowel obstruction, status post extensive surgery who has: 1. Mild hypoxemic respiratory failure. 2. Mild atelectasis at the right lung base. 3. Mild lactic acidosis. 4. Protein calorie malnutrition associated with current illness. 5. History of tobacco use. PLAN: 1. Continue volume resuscitation. Fluid bolus will be initiated. 2. Spontaneous breathing trial this morning to evaluate potential for extubation. 3. We will transition from normal saline to Clinimix as a temporizing nutrition bridge. Consider TPN if this appears to be a more prolonged bowel rest. 4. Continue current antibiotics with a low threshold to add gram-positive coverage. 5. Initiate gastric acid suppression. 6. Initiate DVT prophylaxis. cc: Marcel Ruiz MD
[2019-11-25] MEDS: MORPHINE IV PRN ×2 (11:04→16:03)
--- NOTE | 2019-11-25 11:38 | PROGRESS NOTE ---
DATE: 11/25/2019 Ms. Angelic Turner is postop day 1 from a 5 hour operation for extensive lysis of adhesions for chronic small bowel obstruction. This was a very difficult procedure with multiple small bowel enterotomies. Her bowel was chronically dilated distally and the wall was thin. We had to resect part of her mid small bowel and performed an end-to-end, double-layer sewn anastomosis. We also repaired an enterotomy in the bowel that was left. I am concerned about small bowel fistula and getting her over this operation. After surgery, she went directly to the ICU, intubated and remains intubated this morning but she is awake and responsive. She has an NG tube in, Dean catheter tube. Her abdomen is distended with the midline wound dressed. Hemodynamically, she is satisfactory but her blood pressure is low and she is getting a bolus of fluid. Her heart rate is 96, blood pressure 98/61. She is on no pressors. Her O2 saturation is 100%. She is on 40% FiO2 on the ventilator. Her base deficit is 8. Her white blood cell count is decreased, her hematocrit is 42%. She did receive 2 units of packed red blood cells. Her BUN and creatinine are 13 and 0.8 this morning. Her glucose was elevated a little bit. She is getting Clinimix. I did place a right subclavian central venous line. By x-ray, it is in good position. Again, I spoke with her and her family at the bedside. They understand this was major abdominal surgery and she is critically ill. I have asked Dr. Titus Ruiz to help with her critical care, in addition to the hospitalist. cc: Argelia Dover MD
[2019-11-25] MEDS: ZOFRAN IV PRN (16:03)
[2019-11-25] MEDS ORDERED: CARDIZEM IV ONE (19:39)
[2019-11-25] MEDS ORDERED: LANOXIN IV ONE ×2 (19:54→20:02)
[2019-11-25] MEDS ORDERED: NS 500 ML IV ONE (20:03)
[2019-11-25] MEDS ORDERED: LOPRESSOR IV ONE ×2 (20:04→21:40)
[2019-11-25] MEDS ORDERED: NS 500 ML ONE (20:12)
[2019-11-25] MEDS ORDERED: POTASSIUM CHLORIDE 40 MEQ/SWI 40 MEQ/100 ML IVPB IV ONE (20:30)
[2019-11-25 21:42] LABS: CK-MB 11.02 ng/mL (0.0-5.0)
[2019-11-25] MEDS: XALATAN 0.005% OPH SOLN BOTH EYES SCH (21:52)
[2019-11-25] MEDS: PHENERGAN IV PRN (22:00)
[2019-11-26] MEDS: ZOSYN 3.375 GM in NS 50 ML IV SCH ×4 (02:00→20:41)
[2019-11-26] MEDS: MORPHINE IV PRN (03:41)
[2019-11-26] MEDS: OFIRMEV 1000 MG/ISOTONIC SOLN 1,000 MG/100 ML BOTTLE IV SCH ×4 (04:44→22:03)
[2019-11-26 04:56] LABS: ALLEN TEST YES; BE -1.4 mmoll (-3.0-3.0); BLOOD TYPE ARTERIAL; HCO3-(ACT) 23.9 mmoll (20.0-26.0); METHB 0.9 % (0.0-1.5); O2(CT) 12.3 mL/dL (15.0-23.0); O2HB 97.6 % (95.0-99.0); PCO2(98.6) 32 mmHg (35-45); PO2(98.6) 164 mmHg (60-100); SAMPLE BLOOD; SAO2 100.2 % (95.0-100.0); THB 8.7 g/dL (11.5-17.4); pH(98.6) 7.45 (7.35-7.45)
[2019-11-26 05:05] LABS: MODALITY CANNULA
[2019-11-26 05:50] LABS: BASO# 0.02 X1000 (0.0-0.2); BASO% 0.1 % (0.0-0.8); EOS# 0.27 X1000 (0.0-0.7); HEMATOCRIT 35.9 % (37.0-47.0); HEMOGLOBIN 11.6 g/dL (12.0-16.0); IMM GRAN# 0.34 X1000 (0.0-0.04); IMM GRAN% 2.5 % (0.0-0.5); LYMPH# 0.72 X1000 (1.2-3.4); LYMPH% 5.3 % (20.5-51.1); MCH 27.6 PG (27-31); MCHC 32.3 g/dL (33-37); MCV 85.3 FL (81-99); MONO# 0.46 X1000 (0.11-0.59); MONO% 3.4 % (1.7-9.3); MPV 11.2 FL (7.4-10.4); NEUT# 11.78 X1000 (1.4-6.5); NEUT% 86.7 % (42.2-75.2); PLT 164 X1000 (130-400); RBC 4.21 XMIL (4.2-5.4); RDW 14.6 % (11.5-14.5); WBC 13.59 X1000 (4.8-10.8)
[2019-11-26 06:33] LABS: AGAP 11; ALB/GLOB RATIO 0.9; ALBUMIN 2.1 g/dL (3.5-5.0); ALKALINE PHOSPHATASE 42 U/L (32-104); BUN 16 mg/dL (8-22); CALCIUM 7.9 mg/dL (8.8-10.2); CHLORIDE 110 mmol/L (98-107); COSMO 291; CREATININE 0.6 mg/dL (0.5-0.9); ESTIMATED GFR > 60; GLUCOSE 182 mg/dL (70-104); GOT 26 U/L (10-30); GPT 24 U/L (10-36); MAGNESIUM 1.8 mg/dL (1.5-2.7); PHOSPHORUS 2.1 mg/dL (2.7-4.5); POTASSIUM 4.1 mmol/L (3.5-5.1); SODIUM 143 mmol/L (136-145); TCO2 22 mmol/L (25-35); TOTAL BILIRUBIN 0.85 mg/dL (0.20-1.00); TOTAL PROTEIN 4.4 g/dL (6.3-8.3)
[2019-11-26] MEDS: CLINIMIX E 4.25%-5% SOLUTION 1,000 ML IV SCH ×2 (06:47→15:59)
[2019-11-26] MEDS: HUMULIN R SUBQ SCH ×4 (06:54→20:41)
[2019-11-26] MEDS ORDERED: CHLORASEPTIC SPRAY MT PRN (07:11)
[2019-11-26 07:24] LABS: EOS 2 % (1-10); LYMPHS 7 % (21-51); MONO 3 % (1-9); SEGS 88 % (42-75)
--- NOTE | 2019-11-26 07:34 | EKG Report ---
Test Performed on : 11/26/2019 07:11:46 AM Test Reason : Baseline EKG Blood Pressure : / mmHG Vent. Rate : 088 BPM Atrial Rate : 088 BPM P-R Int : 120 ms QRS Dur : 088 ms QT Int : 352 ms P-R-T Axes : 077 069 052 degrees QTc Int : 425 ms Normal sinus rhythm. Low voltage QRS Nonspecific T wave abnormality Abnormal ECG When compared with ECG of 25-NOV-2019 19:33, (Unconfirmed) Sinus rhythm. has replaced Atrial fibrillation. Vent. rate has decreased BY [address] no longer depressed in Anterolateral leads Nonspecific T wave abnormality has replaced inverted T waves in Lateral leads Confirmed by Linnette Shahid MD ([id number]) on 11/26/2019 1:01:14 PM
[2019-11-26] MEDS ORDERED: LOPRESSOR IV PRN (08:07)
--- NOTE | 2019-11-26 08:32 | PROGRESS NOTE ---
DATE: 11/26/2019 INTERVAL HISTORY: Ms. Turner did have episodes of atrial fibrillation with rapid ventricular rate with heart rate more than 200. She received multiple doses of digoxin and metoprolol following which her heart rate had come down. She has been in normal sinus rhythm at the moment. No other acute overnight events. SUBJECTIVE: Ms. Turner denies any chest pain, shortness of breath, or cough. She denies any nausea or vomiting. She has occasional abdominal pain. She is just complaining of nausea. PHYSICAL EXAMINATION: Vital Signs: Currently, temperature of 97.4 degrees, pulse 90, respiratory 13, and blood pressure 103/48. She is saturating 100% on currently nasal cannula. PHYSICAL EXAMINATION: Not in acute distress. Oral cavity is moist. Air entry bilaterally equal. No wheeze, rhonchi, or crackles. S1, S2 normal. Regular. No murmur or gallop. Abdomen is soft. Midline scar of laparotomy. No bowel sounds. Mild generalized tenderness. She does not have any lower extremity edema. She has an NG tube, right-sided central line, and Dean catheter. MICROBIOLOGY: No microbiological data. LABORATORY: [place] [address], hemoglobin 11.6, and platelets 164,000. ABG suggests PO2 of 164. She does have normal BUN 16 and creatinine of 0. IMAGING: No new imaging. ASSESSMENT AND PLAN: 1. Acute respiratory failure requiring intubation after surgery. The patient was extubated on 11/25. Continue to monitor the patient's respiratory status. 2. Recurrent small bowel obstruction status post exploratory laparotomy with lysis of adhesion, and repair of multiple enterotomies. Continue NG tube as per surgical team's recommendation. I will start her on total parenteral nutrition. Appreciate Surgery recommendation about management of NG tube and diet. She currently does not have any bowel sounds. 3. History of diabetes mellitus type 2, non-insulin dependent. Currently, her blood glucose is within acceptable range, and I will continue sliding scale insulin. 4. Others: Continue morphine and acetaminophen intravenously as needed for pain, pantoprazole for stress ulcer prophylaxis, and enoxaparin for DVT prophylaxis. 5. Atrial fibrillation with rapid ventricular rate, likely secondary to ongoing medical issues including recent surgery. I will give her intravenous metoprolol as needed to control her heart rate. Follow up with echocardiogram. Currently, she is in normal sinus rhythm, and based on her course, I will consider consulting Cardiology. Physical Therapy has been consulted. 6. Plan of care discussed with Ms. Turner. Her questions have been answered. cc: Shreyas Vaz MD
--- NOTE | 2019-11-26 08:52 | EKG Report ---
Test Performed on : 11/25/2019 7:33:45 PM Test Reason : ELEVATED HR Blood Pressure : / mmHG Vent. Rate : 208 BPM Atrial Rate : 133 BPM P-R Int : 000 ms QRS Dur : 080 ms QT Int : 178 ms P-R-T Axes : 000 070 252 degrees QTc Int : 331 ms Atrial fibrillation. with rapid ventricular response. Low voltage QRS ST & T wave abnormality, consider inferior ischemia ST & T wave abnormality, consider anterolateral ischemia Abnormal ECG When compared with ECG of 08-APR-2015 11:34, Significant changes have occurred Confirmed by Kleber RIVERA, MJorge Arita ([id number]) on 11/26/2019 1:00:57 PM
[2019-11-26] MEDS: PROTONIX IV SCH (11:30)
[2019-11-26] MEDS: LOVENOX SUBQ SCH (11:30)
[2019-11-26] MEDS: SODIUM CHLORIDE 0.9% INJ SCH (11:53)
--- NOTE | 2019-11-26 14:05 | ECHO REPORT ---
ORDER DATE: 11/26/2019 INDICATION: Atrial fibrillation. FINDINGS: 1. The right atrium appears normal in size. 2. Mild tricuspid regurgitation. RV systolic pressure of 37. 3. Normal RV size and systolic function. 4. No significant pulmonic insufficiency. 5. Normal left atrial size with a volume index of 21. 6. No mitral valve prolapse. Mild mitral regurgitation. 7. Normal LV size, end-diastolic dimension of 3.7 cm. Normal wall thicknesses with a posterior and interventricular septal wall thickness of 1.1 cm each. Normal LV systolic function. Estimated EF of 65-70% with normal wall motion. 8. Aortic valve opens well. No evidence of stenosis or insufficiency. 9. Aorta appears normal in visualized segments. 10. No pericardial effusion seen. 11. Normal diastolic function. cc: MD Shreyas Vora MD
[2019-11-26] MEDS ORDERED: POTASSIUM PHOSPHATE IV ONE (14:20)
[2019-11-26] MEDS ORDERED: NS IV ONE (14:20)
--- NOTE | 2019-11-26 15:42 | PROGRESS NOTE ---
DATE: 11/26/2019 SUBJECTIVE: Ms. Angelic Turner is now postop day 2 from extensive lysis of adhesions and also small bowel resection and repair of enterotomy. Since my last dictation she has been extubated. She is awake, cooperative, lying in bed in the ICU. Clinically, she says she feels better than prior to surgery. She still has an NG tube in and Dean catheter tube in. OBJECTIVE: Her abdomen is not tightly distended but somewhat distended. It appears that she does not have any peritonitis. She is still tachycardic with a heart rate of 89 to 95. Blood pressure 121/57. O2 saturation 100%. She is afebrile. She is receiving IV Zosyn because of gross intra- abdominal contamination. Her white blood cell count is 13.6, hematocrit is 36%. Her BUN and creatinine are 16 and 0.6. Her base deficit has improved over the last 24 hours. It was -1.4 this morning. Her lactate is 2.40. She had an echocardiogram which was essentially normal. PLAN: I do feel that it will be a long time for her bowel function to return. We will begin TPN as written by our dietitian. We will continue NG suction. She has been up in a chair today. Her Dean catheter tube remains in place for convenience at this time. I do want to leave her Dean catheter tube for now because we did do a lot of dissection around her bladder. I am still quite concerned about any breakdown in her bowel repairs and small-bowel fistula. I have been terri with the patient's family and the patient herself about her major surgery and how difficult it was. cc: Argelia Dover MD
[2019-11-26] MEDS ORDERED: D10W 1,000 ML IV SCH (17:30)
[2019-11-26] MEDS ORDERED: [UNRECOGNIZED DRUG - OTHER] IV SCH ×7 (18:00)
[2019-11-26] MEDS ORDERED: M V I IV SCH ×7 (18:00)
[2019-11-26] MEDS ORDERED: POTASSIUM CHLORIDE IV SCH ×7 (18:00)
[2019-11-26] MEDS ORDERED: MAGNESIUM SULFATE IV SCH ×7 (18:00)
[2019-11-26] MEDS: LIPOSYN 20% 250 ML IV SCH (18:42)
--- NOTE | 2019-11-26 20:22 | PULMONOLOGY PROGRESS NOTE ---
DATE: 11/26/2019 SUBJECTIVE: The patient is arousable to alert. She is conversant. She reports her pain is adequately controlled. She denies shortness of breath. OBJECTIVE: Vital Signs: The patient has been afebrile for the last 24 hours. Blood pressure 122/52, heart rate 92, respiratory rate 12, oxygen saturation 100% on 2 L per nasal cannula. HEENT: Pupils are equal and reactive. Oropharynx appears clear. Neck: Is supple. Chest: Reveals crackles in the lung bases. Cardiac exam: Regular rate. Normal S1, normal S2. Abdomen: Soft and appropriately tender following surgical procedure. Extremities: Are warm to the touch. LABORATORIES: Arterial blood gas reveals a pH of 7.45, pCO2 of 32, PO2 of 164 with a lactate of 2.4. White blood count 13.6, hemoglobin 11.6, platelet count 164,000 sodium 143, potassium 4.1, chloride 110, bicarbonate 22, anion gap 11, BUN 16, creatinine 0.6, phosphorus 2.1, albumin 2.1. IMPRESSION: A 64-year-old with small bowel obstruction, status post extensive surgery for lysis of adhesions, who has: 1. Mild hypoxemic respiratory failure. 2. Mild lactic acidosis. 3. Resolving leukopenia. 4. Protein-calorie malnutrition. 5. History of tobacco use. PLAN: 1. Continue Clinimix. The engraved roller inspector recommends total parenteral nutrition and she will discuss this with Dr. Dover. 2. Wean oxygen as tolerated. 3. Continue bronchial hygiene. 4. Continue gastric acid suppression. 5. Continue deep vein thrombosis prophylaxis. 6. Follow up chest x-ray tomorrow. cc: Marcel Ruiz MD
[2019-11-26] MEDS: XALATAN 0.005% OPH SOLN BOTH EYES SCH (20:41)
[2019-11-27] MEDS: MORPHINE IV PRN ×2 (01:12→21:18)
[2019-11-27] MEDS: ZOSYN 3.375 GM in NS 50 ML IV SCH ×4 (02:20→20:11)
[2019-11-27] MEDS: OFIRMEV 1000 MG/ISOTONIC SOLN 1,000 MG/100 ML BOTTLE IV SCH ×4 (05:54→22:33)
[2019-11-27] MEDS: HUMULIN R SUBQ SCH ×4 (06:14→20:11)
[2019-11-27 06:27] LABS: BASO# 0.02 X1000 (0.0-0.2); BASO% 0.1 % (0.0-0.8); EOS# 0.15 X1000 (0.0-0.7); HEMATOCRIT 32.4 % (37.0-47.0); HEMOGLOBIN 10.6 g/dL (12.0-16.0); IMM GRAN# 0.05 X1000 (0.0-0.04); IMM GRAN% 0.3 % (0.0-0.5); LYMPH# 1.33 X1000 (1.2-3.4); LYMPH% 8.9 % (20.5-51.1); MCH 28.1 PG (27-31); MCHC 32.7 g/dL (33-37); MCV 85.9 FL (81-99); MONO# 0.26 X1000 (0.11-0.59); MONO% 1.7 % (1.7-9.3); MPV 10.9 FL (7.4-10.4); NEUT# 13.18 X1000 (1.4-6.5); PLT 156 X1000 (130-400); RBC 3.77 XMIL (4.2-5.4); RDW 14.8 % (11.5-14.5); WBC 14.99 X1000 (4.8-10.8)
[2019-11-27 06:38] LABS: AGAP 7; ALBUMIN 2.1 g/dL (3.5-5.0); BUN 10 mg/dL (8-22); CALCIUM 8.4 mg/dL (8.8-10.2); CHLORIDE 106 mmol/L (98-107); COSMO 284; CREATININE 0.5 mg/dL (0.5-0.9); ESTIMATED GFR > 60; GLUCOSE 160 mg/dL (70-104); PHOSPHORUS 1.4 mg/dL (2.7-4.5); POTASSIUM 3.3 mmol/L (3.5-5.1); SODIUM 141 mmol/L (136-145); TCO2 28 mmol/L (25-35)
[2019-11-27 06:42] LABS: ESTIMATED GFR > 60
[2019-11-27 06:55] LABS: AGAP 7; BUN 10 mg/dL (8-22); CALCIUM 8.2 mg/dL (8.8-10.2); CHLORIDE 105 mmol/L (98-107); CHOLESTEROL 115 mg/dL (0-200); COSMO 282; CREATININE 0.5 mg/dL (0.5-0.9); GLUCOSE 162 mg/dL (70-104); GOT 20 U/L (10-30); MAGNESIUM 1.9 mg/dL (1.5-2.7); POTASSIUM 3.4 mmol/L (3.5-5.1); PREALBUMIN 3.9 mg/dL (20-40); SODIUM 140 mmol/L (136-145); TCO2 28 mmol/L (25-35); TRIGLYCERIDES 376 mg/dL (35-135)
--- NOTE | 2019-11-27 07:35 | Diag Imaging Result Doc PS360 ---
EXAM: CHEST-PORTABLE INDICATION: abnormal exam TECHNIQUE: One view COMPARISON: 11/25/2019 FINDINGS: There has been interval extubation. The remaining tubes and lines are in stable positions. Mild atelectasis at the right costophrenic angle has improved. No new consolidation is identified. Cardiac silhouette is stable. IMPRESSION: Improvement of mild right basilar atelectasis. Essentially stable chest, otherwise. Electronically signed by Carlito Sierra 11/27/2019 7:33 AM
--- NOTE | 2019-11-27 09:06 | PROGRESS NOTE ---
DATE: 11/27/2019 INTERVAL HISTORY: The patient was started on total parenteral nutrition. She has not had any documented bowel movement. She did not have any episodes of atrial fibrillation. SUBJECTIVE: Ms. Turner is complaining of some nasal congestion and drainage and, as a result, is spitting out whitish stuff. VITAL SIGNS: Temperature of 98.2 degrees, pulse 89, respiratory 22, blood pressure 118/49. She is saturating 99% on room air. PHYSICAL EXAMINATION: General: Not in acute distress. Oral cavity: Moist. Lungs: Air entry bilaterally equal. No wheeze, rhonchi. Heart: S1, S2 normal. Regular. No murmur or gallop. Abdomen: Soft. Midline scar of laparotomy. No bowel sounds. Mild generalized tenderness. Extremities: No lower extremity edema. Lines/tubes: She has an NG tube, right-sided central line and Dean catheter. Neurologic: She is alert and oriented x3. MICROBIOLOGY: No data. IMAGIN. Chest x-ray suggests improvement in mild right basilar atelectasis, essentially stable. 2. Echocardiogram suggest normal wall thickness with posterior and intraventricular septal thickness of 1.1. Normal LV systolic function. Estimated EF of 65 to 70 percent with normal wall motion. ASSESSMENT AND PLAN: 1. Acute respiratory failure requiring intubation after surgery. The patient has been extubated on November 25 and breathing well on room air. Continue respiratory status. 2. Small bowel obstruction on presentation, status post exploratory laparotomy with lysis of adhesions and repair of multiple enterotomies with prior history of small bowel obstruction as well. Continue nasogastric tube as per surgical team's recommendation, total parenteral nutrition, physical therapy. Surgical team currently recommends nasogastric tube and Dean catheter as we expect prolonged postoperative ileus, considering complicated surgery. 3. History of diabetes mellitus type 2, non-insulin dependent, currently blood glucose in acceptable range. I will continue sliding scale insulin. 4. Others. Continue morphine, acetaminophen intravenously as needed for pain, pantoprazole for stress ulcer prophylaxis, enoxaparin for DVT prophylaxis. 5. Episode of atrial fibrillation with rapid ventricular rate on 11/25/2018 evening, which required intravenous digoxin, intravenous metoprolol and diltiazem. The episode had resolved with rate control of medications, and since last 24 hours she has not had any such episode. Echocardiogram essentially is unremarkable. I will continue to monitor her, and we will give her intravenous metoprolol as needed. 6. Worsening leucocytosis: Follow up Chest Xray, sputum culture. I will consider adding MRSA coverage based on her course. For now Continue IV Zosyn. DISPOSITION: Continue to monitor patient in ICU, and I will consider transitioning her to PVC late in the day. Plan of care discussed with her. Her questions have been answered. Physical therapy has been consulted. cc: Shreyas Vaz MD MTDD
--- NOTE | 2019-11-27 10:07 | PULMONOLOGY PROGRESS NOTE ---
DATE: 11/27/2019 SUBJECTIVE: The patient is awake, alert, and sitting in a chair. She has a slightly wet cough. OBJECTIVE: Vital Signs: The patient has been afebrile for the last 24 hours. Blood pressure 118/49, heart rate 89, respiratory rate 22, oxygen saturation 99% on 2 L per nasal cannula. HEENT: Pupils are equal and reactive. Oropharynx appears clear. Neck: Is supple. Chest: Reveals occasional rhonchi which partially clear with coughing. Cardiac exam: S1, S2. Abdomen: Is soft. No bowel sounds are present. Extremities: Without edema. LABORATORIES: White blood count 14.99, hemoglobin 10.6, platelet count 156,000. Sodium 140, potassium 3.4, chloride 105, bicarbonate 28, BUN 10, creatinine 0.5, glucose 162, phosphorus 1.4, albumin 2.1. Chest x-ray reveals decreasing infiltrates at the right base. IMPRESSION: A 64-year-old with 1. Mild hypoxemic respiratory failure. 2. Atelectasis at the right base. 3. Protein calorie malnutrition. 4. History of tobacco use. 5. Status post lysis of adhesions. PLAN: 1. Continue TPN pending improvement in bowel function. 2. Phosphorus replacement. 3. Continue bronchial hygiene. cc: Marcel Ruiz MD
[2019-11-27] MEDS: PROTONIX IV SCH (10:28)
[2019-11-27] MEDS: LOVENOX SUBQ SCH (11:13)
--- NOTE | 2019-11-27 13:46 | PROGRESS NOTE ---
DATE: 11/27/2019 SUBJECTIVE: Ms. Angelic Turner is now postop day 3 from extensive lysis of adhesions, small bowel resection and repair of enterotomy. She sat up this morning. She is awake and cooperative. She states that her stomach is not any more tender than yesterday. She still has an NG tube in place. She is receiving TPN. Her white her white blood cell count has gone up despite IV antibiotics. Her heart rate has been 84 to 90, blood pressure is 123/60. She has no work of breathing. Her O2 saturation is 100%. She has a Dean catheter tube in place really for convenience, plus we did a lot of dissection around the bladder. Her urine output is adequate and her BUN and creatinine are 10 and 0.5. Her white blood cell count went from 13.6 to 15 despite IV Zosyn. Her hematocrit is steady at 32 to 35 percent. PLAN: We are going to continue supportive care. I want to continue her NG tube. I think that she will have a prolonged postoperative ileus. I am concerned about small bowel fistula or breakdown of her bowel repairs. We will continue TPN. I have left her midline wound dressing in place. I will remove that tomorrow. We will continue IV antibiotics because of gross intra- abdominal contamination. I discussed her care with her, her and the nurse at the bedside. cc: Argelia Dover MD
[2019-11-27] MEDS: LIPOSYN 20% 250 ML IV SCH (16:32)
[2019-11-27] MEDS ORDERED: MAGNESIUM SULFATE IV SCH ×8 (18:00)
[2019-11-27] MEDS ORDERED: M V I IV SCH ×8 (18:00)
[2019-11-27] MEDS ORDERED: NS IV ONE (18:00)
[2019-11-27] MEDS ORDERED: POTASSIUM CHLORIDE IV SCH ×8 (18:00)
[2019-11-27] MEDS ORDERED: LASIX IV ONE (18:00)
[2019-11-27] MEDS ORDERED: [UNRECOGNIZED DRUG - OTHER] IV SCH ×8 (18:00)
[2019-11-27] MEDS ORDERED: POTASSIUM PHOSPHATE IV ONE (18:00)
[2019-11-27] MEDS: ZOFRAN IV PRN (19:47)
[2019-11-27] MEDS: XALATAN 0.005% OPH SOLN BOTH EYES SCH (20:11)
[2019-11-28] MEDS: ZOSYN 3.375 GM in NS 50 ML IV SCH ×4 (01:45→19:30)
[2019-11-28] MEDS: OFIRMEV 1000 MG/ISOTONIC SOLN 1,000 MG/100 ML BOTTLE IV SCH ×4 (05:24→23:15)
--- NOTE | 2019-11-28 05:51 | Diag Imaging Result Doc PS360 ---
EXAM: CHEST-PORTABLE HISTORY: abnormal exam TECHNIQUE: Single view COMPARISON: 11/27/2019 FINDINGS: No change in the right subclavian line or the nasogastric tube. The lungs are well expanded. No cardiomegaly. No consolidation. No pleural effusions identified. IMPRESSION: Stable chest Electronically signed by Vinod Schultz 11/28/2019 5:49 AM
[2019-11-28] MEDS: HUMULIN R SUBQ SCH ×4 (06:41→20:20)
[2019-11-28 06:43] LABS: AGAP 11; BUN 11 mg/dL (8-22); CALCIUM 8.4 mg/dL (8.8-10.2); CHLORIDE 103 mmol/L (98-107); COSMO 292; CREATININE 0.5 mg/dL (0.5-0.9); ESTIMATED GFR > 60; GLUCOSE 167 mg/dL (70-104); MAGNESIUM 1.9 mg/dL (1.5-2.7); PHOSPHORUS 3.1 mg/dL (2.7-4.5); POTASSIUM 2.9 mmol/L (3.5-5.1); SODIUM 145 mmol/L (136-145); TCO2 31 mmol/L (25-35)
--- NOTE | 2019-11-28 09:01 | PROGRESS NOTE ---
DATE: 11/28/2019 SUBJECTIVE: Ms. Turner was admitted on 11/21/2019, came in with abdominal pain, nausea, vomiting, was admitted with small bowel obstruction, diabetes. She reports that she feels better today. Abdomen feels a little bit better. She has not passed any gas yet. Chest x-ray from this morning: No change from right subclavian line, nasogastric tube. Lungs are well expanded. No cardiomegaly. No consolidation. No pleural effusions. OBJECTIVE: Vital Signs: On exam she remains afebrile. Temperature 97.5 degrees, pulse 83, respirations 20, blood pressure 111/50. Eyes: Pupils are equal and round. Lungs: Clear in all lung coy. Cardiovascular exam: Regular rhythm and rate without murmur or S3. Abdomen: Abdomen is soft. Skin: Skin is warm and dry. : Urine output is 6900 mL. ASSESSMENT AND PLAN: 1. Mild hypoxemic respiratory failure. 2. Atelectasis of the right base. 3. Protein calorie malnutrition. 4. History of tobacco use. 5. Status post lysis of adhesions. 6. She had acute respiratory failure requiring intubation. After surgery, patient is extubated since November 25, breathing well on room air, doing well from that standpoint. Small bowel obstruction on presentation, status post exploratory laparotomy with lysis of adhesions. Repair of multiple enterotomies with prior history of small bowel obstruction as well. So, continue nasogastric tube, total parental nutrition, physical therapy. Diabetes mellitus type 2. Continue to follow sugars and sliding scale. She has an episode of atrial fibrillation with rapid ventricular rate on 11/25/2018. Required intravenous digoxin, IV metoprolol and digoxin. Episode has resolved with rate control medications. Appears to be in sinus rhythm at this time. REVIEW OF HER ORDERS: She is on Protonix 40 mg IV q. 24 hours and getting Zosyn 3.375 g IV q. 6 hours. cc: Elvis Duke MD
[2019-11-28] MEDS: MORPHINE IV PRN ×3 (09:34→20:57)
[2019-11-28] MEDS: SODIUM CHLORIDE 0.9% INJ SCH (09:34)
[2019-11-28] MEDS: LOVENOX SUBQ SCH (09:34)
[2019-11-28] MEDS: PROTONIX IV SCH (09:34)
[2019-11-28] MEDS ORDERED: POTASSIUM CHLORIDE 40 MEQ/SWI 40 MEQ/100 ML IVPB IV ONE (10:27)
--- NOTE | 2019-11-28 16:11 | PROGRESS NOTE ---
DATE: 11/28/2019 Ms. Angelic Turner is now postop day 4 from extensive lysis of adhesions and bowel obstruction. She is sitting up in a chair. Her heart rate has decreased nicely over the last several days. She still has an NG tube and Dean catheter tube in place. She is getting TPN. Her heart rate is 77, blood pressure 112/58. O2 saturation 98%. She is afebrile. She is on IV Zosyn because of intra-abdominal contamination. She has not had a white blood cell count today. Her electrolytes are satisfactory. Her potassium is a little bit low. BUN and creatinine are 11 and 0.5. Her glucose is 167. She is receiving TPN. Chest x-ray was stable. I changed her midline dressing she is leaking some serous fluid but no evidence of enterocutaneous fistula or infection. PLAN: I will be slow to feed her because of the extensive lysis of adhesions and how fragile her bowel is. We will continue NG suction and TPN. We will leave her Dean mostly out of convenience for now. She has been great about getting up out of bed and into a chair. Dr. Martin Burleson is on for the group and will see her over this weekend. cc: Argelia Dover MD
[2019-11-28] MEDS: M V I IV SCH ×8 (18:44)
[2019-11-28] MEDS: POTASSIUM CHLORIDE IV SCH ×8 (18:44)
[2019-11-28] MEDS: [UNRECOGNIZED DRUG - OTHER] IV SCH ×8 (18:44)
[2019-11-28] MEDS: MAGNESIUM SULFATE IV SCH ×8 (18:44)
--- NOTE | 2019-11-28 18:54 | PROVIDER PROGRESS NOTE ---
Progress Note Dr. Calle Progress Note/Pulmonary and or critical care Subjective: The patient is lying in bed on NC 2L. She is awake and alert. She has NG tube and bell in place. She reports she has been passing gas. Input is appreciated from Dr. Duke and other teams on the case. Objective: Vital Signs: T 98.3 (no fever in last 24 hours), OR 77, RR 16, BP 103/62 and SaO2 98% on NC 2L. I/O: -1718ml Physical Examination: General: Lying in bed with no acute distress noted. HEENT: Normocephalic. Trachea midline. NG tube in place. Mucosa pink and moist. Respiratory: Even and unlabored. Symmetrical excursion. Auscultation reveals occasional rhonchi which partially clear with coughing. CVS: S1 and S2 appreciated. Abdomen: Soft. Mild tenderness. Decreased bowel sounds. Dressing on incision sites. Extremities: No pedal edema. Neuro: Awake and alert. Answer simple questions. Following simple commands. Labs and Radiology: Laboratory Results 11/24/19 11/27/19 11/28/19 18:00 19:56 05:15 Sodium Potassium Chloride Carbon Dioxide Anion Gap BUN Creatinine Estimated GFR/1.73 m2 BUN/Creatinine Ratio Glucose POC Glucose 189 H Calculated Osmolality Calcium Phosphorus Magnesium Triglycerides 531 H Crossmatch See Detail 11/28/19 11/28/19 11/28/19 06:00 06:29 10:20 Sodium 145 Potassium 2.9 L Chloride 103 Carbon Dioxide 31 Anion Gap 11 BUN 11 Creatinine 0.5 Estimated GFR/1.73 m2 > 60 BUN/Creatinine Ratio 22 Glucose 167 H POC Glucose 168 H 167 H Calculated Osmolality 292 Calcium 8.4 L Phosphorus 3.1 Magnesium 1.9 Triglycerides Crossmatch 11/28/19 15:07 Sodium Potassium Chloride Carbon Dioxide Anion Gap BUN Creatinine Estimated GFR/1.73 m2 BUN/Creatinine Ratio Glucose POC Glucose 153 H Calculated Osmolality Calcium Phosphorus Magnesium Triglycerides Crossmatch Assessment: Acute respiratory failure. Atelectasis at the right base. CXR today shows stable chest. Protein calorie malnutrition. History of tobacco use. s/p lysis of adhesions. Prognosis guarded. Plan: Continue TPN pending improvement in bowel function. I will keep titrating O2 need and follow responses closely. Continue bronchial hygiene. Antibiotic (Zosyn). Continue GI and DVT prophylaxis. Physical therapy. Ok to be transferred to the floor. Total evaluation time in minutes: 34.
[2019-11-28] MEDS: XALATAN 0.005% OPH SOLN BOTH EYES SCH (20:20)
[2019-11-29] MEDS: ZOFRAN IV PRN (01:04)
[2019-11-29] MEDS: MORPHINE IV PRN ×5 (01:04→21:55)
[2019-11-29] MEDS: ZOSYN 3.375 GM in NS 50 ML IV SCH ×4 (01:04→19:49)
[2019-11-29] MEDS: OFIRMEV 1000 MG/ISOTONIC SOLN 1,000 MG/100 ML BOTTLE IV SCH ×4 (04:44→22:06)
[2019-11-29] MEDS: HUMULIN R SUBQ SCH ×4 (06:14→20:12)
[2019-11-29 07:11] LABS: AGAP 10; BUN 12 mg/dL (8-22); CALCIUM 8.4 mg/dL (8.8-10.2); CHLORIDE 104 mmol/L (98-107); COSMO 292; CREATININE 0.4 mg/dL (0.5-0.9); ESTIMATED GFR > 60; GLUCOSE 188 mg/dL (70-104); PHOSPHORUS 3.5 mg/dL (2.7-4.5); POTASSIUM 3.3 mmol/L (3.5-5.1); SODIUM 144 mmol/L (136-145); TCO2 30 mmol/L (25-35)
[2019-11-29 08:56] LABS: ALBUMIN 2.4 g/dL (3.5-5.0); DIRECT BILIRUBIN 0.5 mg/dL (0.00-0.20); TOTAL BILIRUBIN 0.68 mg/dL (0.20-1.00); TOTAL PROTEIN 4.7 g/dL (6.3-8.3)
[2019-11-29] MEDS: PROTONIX IV SCH (09:59)
[2019-11-29] MEDS: LOVENOX SUBQ SCH (09:59)
--- NOTE | 2019-11-29 09:59 | PROGRESS NOTE ---
DATE: 11/29/2019 Mr. Turner is feeling better. She is feeling like she is starting to pass some gas. NG tube is out. She is awake and alert, oriented x3. She sat up in a chair some. Abdomen feels softer. Her right subclavian line looks good. OBJECTIVE: Vital Signs: Temp 98.3 degrees, pulse 79, respirations 20, blood pressure 125/67. HEENT: Pupils are equal and round. Neck: No distended neck veins. Lungs: Are clear in all lung coy. Cardiovascular: Regular rhythm and rate without murmur or S3. Abdomen: Is soft, nondistended. Urine output was 3400 mL. Blood sugars 168, 153 and 219. ASSESSMENT AND PLAN: 1. Acute respiratory failure, which is resolved. Atelectasis in right base. Chest x-ray shows improvement and stable. 2. Protein calorie malnutrition, getting TPN. 3. Status post lysis of adhesions and abdomen is improving. Surgery following. This is postoperative day #5 from extensive lysis of adhesions, bowel obstruction. Increasing her activity. She is getting TPN. Still has a Dean catheter in. REVIEW OF HER ORDERS: I do not see any changes. She is getting piperacillin 3.375 g IV q.6, Protonix 40 mg IV q.24 hours. LABORATORY DATA: Sodium 144, potassium 3.3, chloride 104, BUN 12, creatinine 0.4. Blood sugars have been 196, 188, 219. cc: Elvis Duke MD
[2019-11-29] MEDS: SODIUM CHLORIDE 0.9% INJ SCH (10:00)
[2019-11-29] MEDS: MAGNESIUM SULFATE IV SCH ×8 (18:51)
[2019-11-29] MEDS: [UNRECOGNIZED DRUG - OTHER] IV SCH ×8 (18:51)
[2019-11-29] MEDS: M V I IV SCH ×8 (18:51)
[2019-11-29] MEDS: POTASSIUM CHLORIDE IV SCH ×8 (18:51)
--- NOTE | 2019-11-29 19:02 | GENERAL SURGERY PROGRESS NOTE ---
DATE: 11/29/2019 SUBJECTIVE: She is passing some gas. No fevers. No tachycardia. OBJECTIVE: Abdomen: Soft, mildly distended, but appropriately tender. Incisions are intact. Her NG tube is bilious. No fevers. LABORATORY DATA: She has had no labs today, other than a potassium of 3.3, creatinine 0.4. ASSESSMENT AND PLAN: This is a 64-year-old female status post exploratory laparoscopy and lysis of adhesions. She seems to have had resolution of her ileus. We will keep her NG tube for now to prevent any small bowel dilation and she will need to be on strict NPO for another couple of day. She is on peripheral nutrition. Would recommend progressively treating her electrolytes, out of bed and ambulating. cc: Suman Burleson MD
--- NOTE | 2019-11-29 19:07 | PROVIDER PROGRESS NOTE ---
Progress Note Dr. Calle Progress Note/Pulmonary and or critical care Subjective: The patient is lying in bed on NC 2L. She is very calm and cooperative. She still has NG tube and bell in. She stays NPO. She has no complaint at this time. Family at the bedside. Input is appreciated from Dr. Duke and other teams on the case. Objective: Vital Signs: T 98.1 (no fever in last 24 hours), WI 83, RR 26, BP 120/71 and SaO2 100% on NC 2L. I/O: -98ml Physical Examination: General: Lying in bed with no acute distress noted. HEENT: Normocephalic. Trachea midline. NG tube in place. Mucosa pink and moist. Respiratory: Even and unlabored. Symmetrical excursion. Good air entry bilaterally. CVS: S1 and S2 appreciated. Abdomen: Soft. Mild tenderness. Decreased bowel sounds. Dressing on incision sites. Extremities: No pedal edema. Neuro: Awake and alert. Answer simple questions. Following simple commands. Labs and Radiology: Laboratory Results 11/28/19 11/29/19 11/29/19 20:16 04:41 04:41 Sodium 144 Potassium 3.3 L Chloride 104 Carbon Dioxide 30 Anion Gap 10 BUN 12 Creatinine 0.4 L Estimated GFR/1.73 m2 > 60 BUN/Creatinine Ratio 30 Glucose 188 H POC Glucose 196 H Calculated Osmolality 292 Calcium 8.4 L Phosphorus 3.5 Magnesium 2.0 Total Bilirubin Direct Bilirubin AST ALT Alkaline Phosphatase Total Protein Albumin Globulin Albumin/Globulin Ratio Triglycerides 475 H 11/29/19 11/29/19 11/29/19 04:41 05:56 10:16 Sodium Potassium Chloride Carbon Dioxide Anion Gap BUN Creatinine Estimated GFR/1.73 m2 BUN/Creatinine Ratio Glucose POC Glucose 219 H 219 H Calculated Osmolality Calcium Phosphorus Magnesium Total Bilirubin 0.68 Direct Bilirubin 0.50 H AST 26 ALT 26 Alkaline Phosphatase 149 H Total Protein 4.7 L Albumin 2.4 L Globulin 2.3 Albumin/Globulin Ratio 1.0 Triglycerides 11/29/19 15:54 Sodium Potassium Chloride Carbon Dioxide Anion Gap BUN Creatinine Estimated GFR/1.73 m2 BUN/Creatinine Ratio Glucose POC Glucose 204 H Calculated Osmolality Calcium Phosphorus Magnesium Total Bilirubin Direct Bilirubin AST ALT Alkaline Phosphatase Total Protein Albumin Globulin Albumin/Globulin Ratio Triglycerides Assessment: Acute respiratory failure, mildly hypoxemic. Resolved. Patient actually can be off supplemental oxygen. Atelectasis at the right base. Protein calorie malnutrition. History of tobacco use. s/p lysis of adhesions. Prognosis guarded. Plan: Continue TPN pending improvement in bowel function. Supplemental oxygen as needed. Supplemental oxygen can be off clinically. Continue bronchial hygiene. Antibiotic (Zosyn). Continue GI and DVT prophylaxis. Physical therapy. Ok to be transferred to the floor. Total evaluation time in minutes: 31.
[2019-11-29] MEDS: XALATAN 0.005% OPH SOLN BOTH EYES SCH (20:12)
[2019-11-30] MEDS: ZOSYN 3.375 GM in NS 50 ML IV SCH ×4 (01:15→20:07)
[2019-11-30] MEDS: MORPHINE IV PRN ×4 (03:21→23:58)
[2019-11-30] MEDS: OFIRMEV 1000 MG/ISOTONIC SOLN 1,000 MG/100 ML BOTTLE IV SCH ×4 (04:20→23:04)
[2019-11-30] MEDS: HUMULIN R SUBQ SCH ×4 (06:09→20:52)
[2019-11-30 07:30] LABS: AGAP 12; BUN 14 mg/dL (8-22); CALCIUM 8.4 mg/dL (8.8-10.2); CHLORIDE 104 mmol/L (98-107); COSMO 292; CREATININE 0.4 mg/dL (0.5-0.9); ESTIMATED GFR > 60; GLUCOSE 218 mg/dL (70-104); MAGNESIUM 2.1 mg/dL (1.5-2.7); PHOSPHORUS 2.7 mg/dL (2.7-4.5); POTASSIUM 3.4 mmol/L (3.5-5.1); SODIUM 143 mmol/L (136-145); TCO2 27 mmol/L (25-35)
[2019-11-30] MEDS ORDERED: POTASSIUM CHLORIDE 40 MEQ/SWI 40 MEQ/100 ML IVPB IV ONE (08:00)
[2019-11-30 08:11] LABS: ALB/GLOB RATIO 0.5; ALBUMIN 2.1 g/dL (3.5-5.0); DIRECT BILIRUBIN 0.2 mg/dL (0.00-0.20); TOTAL BILIRUBIN 0.46 mg/dL (0.20-1.00)
--- NOTE | 2019-11-30 08:19 | PROGRESS NOTE ---
DATE: 11/30/2019 SUBJECTIVE: Ms. Turner is much better. The NG tube is out. Her tummy is softer, so she is very encouraged. OBJECTIVE: Vital Signs: She remains afebrile, temperature 97.9 degrees, pulse 80, respirations 20, blood pressure 129/64. HEENT: Her pupils are equal. Neck: No distended neck veins. Lungs: Clear anterolateral. Voice is strong and clear. Cardiovascular: Regular rhythm and rate without murmur or S3. Abdomen: Soft and nondistended. Skin: Warm and dry. LABORATORY DATA: Blood sugars, the last four, were 153, 219, 204, and 248. ASSESSMENT AND PLAN: 1. Acute respiratory failure. Mildly hypoxemic. This has resolved. She has been off supplemental oxygen. She had some atelectasis in the right base, which is clearing. 2. Protein calorie malnutrition. 3. Status post lysis of adhesions, and her peristalsis seems to be improving it, heading in the right direction. 4. History of tobacco use. I have counseled her on tobacco cessation. 5. She is to continue total parenteral nutrition, and hopefully can start her on oral food soon. REVIEW OF ORDERS: She is on Lovenox 40 mg subcutaneously every 24 hours. She is getting acetaminophen 1000 mg IV every 6 hours p.r.n., Protonix 40 mg IV every 24 hours, Zosyn 3.375 grams IV every 6 hours. REVIEW OF LABS: This morning, sodium 143, potassium 3.4, chloride 104, BUN 14, creatinine 0.4, so will give her 40 mEq of IV potassium this morning. cc: Elvis Duke MD
[2019-11-30] MEDS: PROTONIX IV SCH (09:11)
[2019-11-30] MEDS: LOVENOX SUBQ SCH (09:11)
[2019-11-30] MEDS: SODIUM CHLORIDE 0.9% INJ SCH (09:11)
--- NOTE | 2019-11-30 16:48 | GENERAL SURGERY PROGRESS NOTE ---
DATE: 11/30/2019 SUBJECTIVE: No abdominal pain. She is passing gas. NG tube output remains bilious. No fevers. Pulse in the 80s, blood pressure 134/64. General: She is alert. Cardiovascular: Normal rate. Abdomen: Soft, nontender, nondistended. NG tube is bilious. ASSESSMENT AND PLAN: This is a 64-year-old female status post exploratory laparoscopy, lysis of adhesions and bowel resection. Her abdominal exam is benign. She has had return of function. Will keep her NG tube and possibly remove this tomorrow. cc: Suman Burleson MD
--- NOTE | 2019-11-30 17:24 | PROVIDER PROGRESS NOTE ---
Progress Note Dr. Calle Progress Note/Pulmonary and or critical care Subjective: The patient is lying in bed on room air. She is awake and alert. She still has NG tube and bell in. She stays on strict NPO per General Surgery. She states she is feeling ok. Family at the bedside. Input is appreciated from Dr. Duke and other teams on the case. Objective: Vital Signs: T 97.5 (no fever in last 24 hours), MS 79, RR 24, BP 137/75 and SaO2 97% on room air. I/O: 195ml Physical Examination: General: Lying in bed with no acute distress noted. HEENT: Normocephalic. Trachea midline. NG tube in place. Mucosa pink and moist. Respiratory: Even and unlabored. Symmetrical excursion. Good air entry bilaterally. CVS: S1 and S2 appreciated. Abdomen: Soft. Mild tenderness. Mild distended. Decreased bowel sounds. Dressing on incision sites. Extremities: No pedal edema. Neuro: Awake and alert. Answer simple questions. Following simple commands. Labs and Radiology: Laboratory Results 11/29/19 11/30/19 11/30/19 19:56 04:45 04:45 Sodium 143 Potassium 3.4 L Chloride 104 Carbon Dioxide 27 Anion Gap 12 BUN 14 Creatinine 0.4 L Estimated GFR/1.73 m2 > 60 BUN/Creatinine Ratio 35 Glucose 218 H POC Glucose 188 H Calculated Osmolality 292 Calcium 8.4 L Phosphorus 2.7 Magnesium 2.1 Total Bilirubin 0.46 Direct Bilirubin 0.20 AST 23 ALT 23 Alkaline Phosphatase 198 H Total Protein 6.0 L Albumin 2.1 L Globulin 3.9 Albumin/Globulin Ratio 0.5 11/30/19 11/30/19 11/30/19 06:06 11:05 15:55 Sodium Potassium Chloride Carbon Dioxide Anion Gap BUN Creatinine Estimated GFR/1.73 m2 BUN/Creatinine Ratio Glucose POC Glucose 248 H 222 H 225 H Calculated Osmolality Calcium Phosphorus Magnesium Total Bilirubin Direct Bilirubin AST ALT Alkaline Phosphatase Total Protein Albumin Globulin Albumin/Globulin Ratio Assessment: Acute respiratory failure, mildly hypoxemic. Resolved. Patient is on room air and tolerates well. Atelectasis at the right base. Protein calorie malnutrition. History of tobacco use. s/p lysis of adhesions. Prognosis guarded. Plan: Continue TPN pending improvement in bowel function. Supplemental oxygen as needed. Continue bronchial hygiene. Antibiotic (Zosyn). Continue GI and DVT prophylaxis. Physical therapy. Stay strict NPO per General Surgery. Ok to be transferred to the floor from a nascar driver standpoint. Total evaluation time in minutes: 32.
[2019-11-30] MEDS ORDERED: [UNRECOGNIZED DRUG - OTHER] IV SCH ×8 (18:00)
[2019-11-30] MEDS ORDERED: POTASSIUM CHLORIDE IV SCH ×8 (18:00)
[2019-11-30] MEDS ORDERED: MAGNESIUM SULFATE IV SCH ×8 (18:00)
[2019-11-30] MEDS ORDERED: M V I IV SCH ×8 (18:00)
[2019-11-30] MEDS: MAGNESIUM SULFATE IV SCH ×8 (18:02)
[2019-11-30] MEDS: POTASSIUM CHLORIDE IV SCH ×8 (18:02)
[2019-11-30] MEDS: [UNRECOGNIZED DRUG - OTHER] IV SCH ×8 (18:02)
[2019-11-30] MEDS: M V I IV SCH ×8 (18:02)
[2019-11-30] MEDS: XALATAN 0.005% OPH SOLN BOTH EYES SCH (20:09)
[2019-12-01] MEDS: ZOSYN 3.375 GM in NS 50 ML IV SCH ×4 (02:27→22:35)
[2019-12-01] MEDS: MORPHINE IV PRN ×6 (03:31→23:37)
[2019-12-01] MEDS: OFIRMEV 1000 MG/ISOTONIC SOLN 1,000 MG/100 ML BOTTLE IV SCH ×4 (04:57→23:37)
[2019-12-01 06:06] LABS: AGAP 14; BUN 14 mg/dL (8-22); CALCIUM 8.4 mg/dL (8.8-10.2); CHLORIDE 104 mmol/L (98-107); COSMO 290; CREATININE 0.5 mg/dL (0.5-0.9); ESTIMATED GFR > 60; GLUCOSE 219 mg/dL (70-104); MAGNESIUM 1.8 mg/dL (1.5-2.7); PHOSPHORUS 2.5 mg/dL (2.7-4.5); POTASSIUM 3.6 mmol/L (3.5-5.1); SODIUM 142 mmol/L (136-145); TCO2 24 mmol/L (25-35)
[2019-12-01] MEDS: HUMULIN R SUBQ SCH ×4 (06:22→22:36)
--- NOTE | 2019-12-01 09:35 | PROGRESS NOTE ---
DATE: 12/01/2019 SUBJECTIVE: Ms. Angelic Turner is now 1 week status post extensive lysis of adhesions with small bowel resection. This last week she has been hospitalized in the ICU, NG tube and Dean catheter tube in place. She has gotten in a chair. Over the weekend, she reported some flatus. Her abdomen is still distended, but not tightly. She has been n.p.o. OBJECTIVE: Her heart rate this morning is 80, blood pressure 130/68, and O2 saturation 99%. She has no work of breathing. She has been afebrile, but she is on IV Tylenol. Electrolytes are within normal limits. Wound dressing is dry. She is awake and cooperative. We have no recent CBC. PLAN: I will leave her NG tube in today. We need to continue TPN and increasing her activity. cc: Argelia Dover MD
--- NOTE | 2019-12-01 10:22 | PROGRESS NOTE ---
DATE: 12/01/2019 SUBJECTIVE: Ms. Turner has NG tube back in. She denies any pain, breathing comfortably. OBJECTIVE: Vital Signs: Remains afebrile, temperature 97 degrees, pulse 79, respirations 22, blood pressure 135/83. HEENT: Pupils are equal and round. No distended neck veins. Lungs: Clear anterolateral. Cardiovascular: Regular rhythm and rate without murmur or S3. Monitor shows sinus rhythm. Abdomen: Soft, nondistended. Extremities: No pedal edema. Urine output was 4000 mL. Blood sugar 248, 225, 278. ASSESSMENT AND PLAN: 1. One week status post extensive lysis of adhesions with small bowel resection. Continue NG tube. Dr. Dover following. Has a Dean catheter in place. 2. Acute respiratory failure, mildly hypoxemic, which is resolved. The patient is on room air and tolerating that well. 3. Atelectasis of the right base. 4. Protein calorie malnutrition. 5. History of tobacco use. She is on TPN. REVIEW OF HER ORDERS: I do not see any change at this point. LABORATORY DATA: This morning electrolytes: Sodium 142, potassium 3.6, chloride 104, BUN 14, creatinine 0.5, blood sugars 225, 229, 219, and 278. cc: Elvis Duke MD
[2019-12-01] MEDS: PROTONIX IV SCH (10:50)
[2019-12-01] MEDS: LOVENOX SUBQ SCH (10:50)
[2019-12-01] MEDS: SODIUM CHLORIDE 0.9% INJ SCH (10:50)
[2019-12-01] MEDS ORDERED: D10W 1,000 ML IV SCH (15:00)
[2019-12-01] MEDS: ZOFRAN IV PRN ×2 (15:45→19:28)
[2019-12-01] MEDS: LIPOSYN 20% 250 ML IV SCH (16:44)
[2019-12-01] MEDS: PHENERGAN IV PRN (17:11)
[2019-12-01] MEDS: POTASSIUM CHLORIDE IV SCH ×8 (18:55)
[2019-12-01] MEDS: [UNRECOGNIZED DRUG - OTHER] IV SCH ×8 (18:55)
[2019-12-01] MEDS: MAGNESIUM SULFATE IV SCH ×8 (18:55)
[2019-12-01] MEDS: TPN ELECTROLYTES IV SCH ×8 (18:55)
--- NOTE | 2019-12-02 01:47 | PULMONOLOGY PROGRESS NOTE ---
DATE: 12/01/2019 SUBJECTIVE: The patient is awake and alert. She reports she has not passed any flatus. She denies shortness of breath. She denies abdominal pain. OBJECTIVE: Vital Signs: The patient has been afebrile for the last 24 hours. Blood pressure 137/68, heart rate 90, respiratory rate 20, oxygen saturation 96% on room air. HEENT: Pupils are equal and reactive. Oropharynx appears clear. Neck: Supple. Chest: Reveals crackles in both lung bases. Cardiac: S1, S2. Abdomen: Soft. No bowel sounds appreciated. Extremities: Without edema. LABORATORY DATA: Sodium 142, potassium 3.6, chloride 104, bicarbonate 24, BUN 14, creatinine 0.5. IMPRESSION: A 64-year-old with: 1. Atelectasis. 2. Protein calorie malnutrition. 3. History of tobacco use. 4. Respiratory failure which has resolved. 5. History of tobacco use. PLAN: 1. Continue TPN pending improvement in bowel function. 2. NG management per General Surgery. 3. Continue bronchial hygiene. 4. Follow up chest x-ray and KUB tomorrow. cc: Marcel Ruiz MD
[2019-12-02] MEDS: XALATAN 0.005% OPH SOLN BOTH EYES SCH ×2 (02:01→21:39)
[2019-12-02] MEDS: HUMULIN R SUBQ SCH ×5 (02:03→21:54)
[2019-12-02] MEDS: ZOSYN 3.375 GM in NS 50 ML IV SCH ×5 (02:04→23:44)
[2019-12-02] MEDS: MORPHINE IV PRN ×5 (06:02→21:38)
[2019-12-02] MEDS: OFIRMEV 1000 MG/ISOTONIC SOLN 1,000 MG/100 ML BOTTLE IV SCH ×4 (06:02→23:45)
--- NOTE | 2019-12-02 07:08 | PROGRESS NOTE ---
DATE: 12/02/2019 SUBJECTIVE: Ms. Turner did not get much sleep last night. NG tube still in place. She has still not had a bowel movement. She is passing some gas and remains afebrile. OBJECTIVE: Temperature 98.4 degrees, pulse 92, respirations 20, last several blood pressures 138/71, 137/68, and 114/50. Pupils are equal and round. Lungs are clear in all lung coy. Cardiovascular regular rhythm and rate without murmur or S3. Abdomen is soft. Skin is warm and dry. LABORATORY: Urine output is 2500 mL. Last several blood sugars 225, 278, 229 and 253. ASSESSMENT AND PLAN: 1. Atelectasis seems to be improving. He is on TPN. 2. Protein calorie malnutrition on TPN. 3. History of tobacco use. 4. Respiratory failure, which has resolved. 5. History of tobacco use. 6. Continue present bronchial hygiene. 7. He is hoping to go to physical therapy. I think he should be able to go today. We will see. He is on Zosyn 3.375 g IV q.6 hours. He is eating. Physical Therapy reports he maintained balance with hand held support so hopefully we can go to rehab today. REVIEW OF ORDERS: I do not see any change. LABORATORY DATA: Review of his labs, hematocrit 32, hemoglobin 10, white blood cell count was 29019, and platelet count 156,000. Blood sugars 229, 204, 230, and 253. cc: Elvis Duke MD
[2019-12-02 07:27] LABS: BASO# 0.03 X1000 (0.0-0.2); BASO% 0.2 % (0.0-0.8); EOS# 0.06 X1000 (0.0-0.7); EOS% 0.4 % (0.0-10.0); HEMATOCRIT 30.9 % (37.0-47.0); HEMOGLOBIN 9.9 g/dL (12.0-16.0); LYMPH% 7.1 % (20.5-51.1); MCH 27.9 PG (27-31); MONO# 0.89 X1000 (0.11-0.59); MONO% 5.2 % (1.7-9.3); MPV 10.6 FL (7.4-10.4); NEUT# 14.79 X1000 (1.4-6.5); NEUT% 87.1 % (42.2-75.2); PLT 359 X1000 (130-400); RBC 3.55 XMIL (4.2-5.4); RDW 15.5 % (11.5-14.5); WBC 16.97 X1000 (4.8-10.8)
--- NOTE | 2019-12-02 07:45 | Diag Imaging Result Doc PS360 ---
EXAM: CHEST-PORTABLE HISTORY: elevated WBC TECHNIQUE: Single view COMPARISON: 11/28/2019 FINDINGS: No change in the right subclavian line or the nasogastric tube. There are now infiltrates in the lower left lung with atelectasis and a small pleural effusion. Right lung remains well expanded and clear. No cardiomegaly. IMPRESSION: Interval worsening Electronically signed by Vinod Schultz 12/02/2019 7:42 AM
--- NOTE | 2019-12-02 07:46 | Diag Imaging Result Doc PS360 ---
EXAM: KUB ABDOMEN HISTORY: SBO TECHNIQUE: Single view COMPARISON: 11/22/2019 FINDINGS: There are midline skin leonila. A nasogastric tube overlies the stomach. No bowel obstruction. No organomegaly. IMPRESSION: No evidence of a small bowel obstruction Electronically signed by Vinod Schultz 12/02/2019 7:43 AM
[2019-12-02 07:57] LABS: AGAP 12; ALB/GLOB RATIO 0.6; ALBUMIN 2.4 g/dL (3.5-5.0); ALKALINE PHOSPHATASE 180 U/L (32-104); BUN 15 mg/dL (8-22); CALCIUM 8.4 mg/dL (8.8-10.2); CHLORIDE 99 mmol/L (98-107); COSMO 281; CREATININE 0.6 mg/dL (0.5-0.9); ESTIMATED GFR > 60; GLUCOSE 255 mg/dL (70-104); GOT 16 U/L (10-30); GPT 17 U/L (10-36); POTASSIUM 3.6 mmol/L (3.5-5.1); SODIUM 136 mmol/L (136-145); TCO2 25 mmol/L (25-35); TOTAL BILIRUBIN 0.38 mg/dL (0.20-1.00); TOTAL PROTEIN 6.2 g/dL (6.3-8.3)
[2019-12-02 07:59] LABS: PHOSPHORUS 2.7 mg/dL (2.7-4.5); PREALBUMIN 10.4 mg/dL (20-40)
[2019-12-02] MEDS: LOVENOX SUBQ SCH (08:59)
[2019-12-02] MEDS: PROTONIX IV SCH (08:59)
[2019-12-02] MEDS: SODIUM CHLORIDE 0.9% INJ SCH (08:59)
[2019-12-02] MEDS: LIPOSYN 20% 250 ML IV SCH ×2 (15:48→17:46)
[2019-12-02] MEDS ORDERED: LASIX IV ONE (16:58)
--- NOTE | 2019-12-02 17:23 | PROGRESS NOTE ---
DATE: 12/02/2019 SUBJECTIVE: Ms. Angelic Turner is a 64-year-old black female who is now postop day 8 from extensive lysis of adhesions. Small bowel resection and repair of enterotomies. She has been hospitalized in the ICU after surgery because she was ventilated after surgery and yesterday she was transferred to the floor. Today, she does not feel as well and does not look as well clinically. Her abdomen is distended she states that she feels she is taking more pain medicine today for her abdomen. She has pressure in her lower abdomen. She has had some drainage involving her midline incision. She has not passed much flatus today if it any at all. Yesterday she did have some. She has had no bowel movement. Nasogastric tube still in place. Dean catheter tube still in place. She has gotten up in a chair. OBJECTIVE: Vital Signs: Her heart rate is 85. Blood pressure 136/59, O2 saturation 94%. She is afebrile. Her chest x-ray is worse with some atelectasis or possible pneumonia left lower lobe. Her white blood cell count elevated to 17 despite IV Zosyn. She is not acidotic and her BUN and creatinine are 15 and 0.6. Her sugar is a little bit elevated. She remains on TPN for nutrition. It is 268. Liver function tests are within normal limits. Abdominal film today shows no evidence of small-bowel obstruction. Chest x-ray showed no evidence of free air. She still has a right subclavian central venous line in place. NG tube in place. There are infiltrates involving the lower left lung with atelectasis and a small pleural effusion. Right lung seems to be clear. PLAN: We will get a CT scan of her abdomen and pelvis with oral and IV contrast because of her abdominal distention, elevated white blood cell count despite IV Zosyn to be sure that we do not have an intra-abdominal abscess or evidence of problems intra-abdominally. I have discussed all this in detail with the patient and her family at the bedside. One of her family members is a nurse. cc: Argelia Dover MD
[2019-12-02] MEDS: POTASSIUM CHLORIDE IV SCH ×8 (17:59)
[2019-12-02] MEDS: MAGNESIUM SULFATE IV SCH ×8 (17:59)
[2019-12-02] MEDS: [UNRECOGNIZED DRUG - OTHER] IV SCH ×8 (17:59)
[2019-12-02] MEDS: TPN ELECTROLYTES IV SCH ×8 (17:59)
[2019-12-02] MEDS ORDERED: VANCOMYCIN IV PER PHARMACY MISC SCH (19:15)
--- NOTE | 2019-12-02 19:50 | PULMONOLOGY PROGRESS NOTE ---
DATE: 12/02/2019 SUBJECTIVE: The patient reports she has had a rough day. She did spend some time in the chair today. She is not passing significant flatus. She did get some nausea. She does report with bending she has had some purulent, foul-smelling drainage from her incision site. OBJECTIVE: Vital Signs: The patient has been afebrile for the last 24 hours. Blood pressure 137/61, heart rate 79, respiratory rate 20, oxygen saturation 98%. HEENT: Pupils are equal and reactive. Oropharynx appears clear. Neck: Supple. Chest: Reveals diminished breath sounds left base. Cardiac Exam: S1, S2. Abdomen: Mildly distended with decreased bowel sounds. Extremities: Without edema. LABORATORIES: White blood count 16,970, hemoglobin 9.9, platelet count 359,000, sodium 136, potassium 3.6, chloride 99, bicarbonate 25, BUN 15, creatinine 0.6, prealbumin 10.4. IMAGING: Chest x-ray: Atelectasis with increased left-sided pleural effusion. IMPRESSION: 1. Atelectasis. 2. Pleural effusion. 3. Protein calorie malnutrition with improving prealbumin level. 4. History of tobacco use. 5. Status post lysis of adhesions. 6. Increasing leukocytosis. PLAN: 1. Continue TPN. 2. Continue bronchial hygiene. 3. Anticipate CT scan of the abdomen and pelvis tomorrow as outlined per Dr. Dover to rule out abdominal abscess. cc: Marcel Ruiz MD
[2019-12-02] MEDS ORDERED: VANCOMYCIN 1,900 MG in NS 500 ML IV ONE (20:00)
[2019-12-02] MEDS: DIFLUCAN 200 MG/NS 200 MG/100 ML IVPB IV SCH (20:02)
[2019-12-03] MEDS: MORPHINE IV PRN ×4 (01:21→21:07)
[2019-12-03] MEDS: HUMULIN R SUBQ SCH ×6 (01:21→21:08)
[2019-12-03] MEDS: OFIRMEV 1000 MG/ISOTONIC SOLN 1,000 MG/100 ML BOTTLE IV SCH ×4 (05:10→23:38)
[2019-12-03] MEDS: ZOSYN 3.375 GM in NS 50 ML IV SCH ×3 (05:10→19:48)
[2019-12-03 07:01] LABS: HEMOGLOBIN 9.9 g/dL (12.0-16.0); MCHC 31.9 g/dL (33-37); MCV 87.6 FL (81-99); MPV 10.4 FL (7.4-10.4); RBC 3.54 XMIL (4.2-5.4); RDW 15.3 % (11.5-14.5); WBC 19.9 X1000 (4.8-10.8)
--- NOTE | 2019-12-03 07:13 | Diag Imaging Result Doc PS360 ---
EXAM: CT ABD/PELVIS W/PO AND IV CON 12/02/2019 HISTORY: s/p abd surgery, distension and increased wbc. TECHNIQUE: This exam was performed using automated exposure control, adjustment of mA or kV according to patient size, and/or use of iterative reconstruction technique. COMMENT: There is some dependent atelectasis in the right lower lobe and denser consolidation with air bronchograms in the left lower lobe. This was not the case on 11/20/2019. There is also a left pleural effusion and a tiny effusion on the right. The aorta is stable in appearance and the mesenteric and renal arteries are patent. The spleen and adrenal glands and pancreas are stable in appearance. There has been cholecystectomy. There is focal fatty change near the falciform ligament. The appearance of the liver has not changed significantly. There is some dilatation of proximal small bowel loops. The stomach is not particularly distended. There has been interval midline laparotomy. There is fluid in the left paracolic gutter. This may be loculated and the possibility of an early abscess cannot be excluded. There is minimal fluid in left subphrenic space. There is fluid and some gas in the incision in the subcutaneous fat above the level of the umbilicus. This extends to the left rectus sheath. The small bowel dilatation which was demonstrated on 11/20/2019 has diminished slightly. Oral contrast has not reached the colon. There is some stool in the colon including the rectosigmoid. There is diverticulosis in the right colon particularly in the area of the hepatic flexure. No evidence of diverticulitis is present. There is considerable stranding in the mesenteric fat particularly on the left side of the abdomen and inferiorly. There is also some apparent loculated fluid between small bowel loops anterolaterally in the lower abdomen and upper pelvis on the left. There is apparent extraluminal gas particularly around image 102. This may be residual from the laparotomy. There is somewhat worsened mesenteric adenopathy. There is some prominence of the left renal pelvis however this has not changed much since the previous study and the right renal collecting system is less distended than it was. There is some subcutaneous edema along the left flank which was not previously present. Pelvis: The appendix is not distended. There is considerable stranding in the mesenteric fat. There is loculated fluid anteriorly and some free fluid is present in the cul-de-sac. This was also the case previously. The small bowel loops in the pelvis are less distended than they were. There is a Dean catheter in the bladder which nonetheless is somewhat distended. There is some gas in the bladder. The regional skeleton is stable in appearance. IMPRESSION: 1. Left lower lobe pneumonia and pleural effusion. 2. Loculated peritoneal fluid collections and stranding in the mesenteric fat which may be indicative of peritonitis. 3. Improved small bowel obstruction. Postsurgical changes as described. Electronically signed by Romeo Stewart 12/03/2019 7:10 AM
[2019-12-03 07:30] LABS: AGAP 13; ALB/GLOB RATIO 0.6; ALBUMIN 2.5 g/dL (3.5-5.0); ALKALINE PHOSPHATASE 203 U/L (32-104); BUN 13 mg/dL (8-22); CALCIUM 8.2 mg/dL (8.8-10.2); CHLORIDE 97 mmol/L (98-107); COSMO 284; CREATININE 0.5 mg/dL (0.5-0.9); ESTIMATED GFR > 60; GLUCOSE 278 mg/dL (70-104); GOT 18 U/L (10-30); GPT 20 U/L (10-36); POTASSIUM 3.6 mmol/L (3.5-5.1); SODIUM 137 mmol/L (136-145); TCO2 27 mmol/L (25-35); TOTAL BILIRUBIN 0.48 mg/dL (0.20-1.00); TOTAL PROTEIN 6.7 g/dL (6.3-8.3)
--- NOTE | 2019-12-03 08:23 | Diag Imaging Result Doc PS360 ---
CHEST-2 VIEWS - 12/03/2019 INDICATION: abnormal exam COMPARISON: 12/02/2019 FINDINGS: Support lines and tubes are stable. Stable small opacification in the left lower lobe. No new infiltrates. Heart size is normal. IMPRESSION: No change from prior. Electronically signed by Parker Romeo 12/03/2019 8:21 AM
[2019-12-03] MEDS: VANCOMYCIN 1,100 MG in NS 250 ML IV SCH ×2 (08:25→19:48)
[2019-12-03] MEDS: SODIUM CHLORIDE 0.9% INJ SCH (09:23)
[2019-12-03] MEDS: LOVENOX SUBQ SCH (09:23)
[2019-12-03] MEDS: PROTONIX IV SCH (09:23)
--- NOTE | 2019-12-03 09:57 | PROGRESS NOTE ---
DATE: 12/03/2019 SUBJECTIVE: She is passing gas, but she has not had a bowel movement. She is more comfortable today. She said she had a pretty good night. OBJECTIVE: Vital Signs: Temperature is 98.5 degrees, pulse 82, respirations 16, blood pressure 130/51. HEENT: Pupils are equal and round. Lungs: Clear in all lung coy. Cardiovascular: Regular rhythm and rate without murmur or S3. Urine output was 6300 mL. Blood sugar is 253, 268, 257, and 286. IMAGING: Chest x-ray from today, no change. Support lines and tubes are stable. Stable small opacification, left lower lobe. No new infiltrates. NG tube in place. ASSESSMENT AND PLAN: 1. Atelectasis, pleural effusion. She is improving. Breathing status is improved. Still has left-sided pleural effusion and atelectasis. 2. Protein calorie malnutrition. Prealbumin level is improving. 3. Status post lysis of adhesions. Abdomen is slowly improving. Still has a nasogastric tube in place. 4. Continue physical therapy. Her strength is improving. cc: Elvis Duke MD
--- NOTE | 2019-12-03 10:47 | PROGRESS NOTE ---
DATE: 12/03/2019 Ms. Angelic Turner is now postop day 9 from extensive lysis of adhesions, small bowel resection, and repair of small bowel enterotomy. She was hospitalized in the ICU for approximately 5 to 6 days after surgery but is now on the floor. She still has an NG tube in place and a Dean catheter tube in place. Over the last several days, her white blood cell count has increased despite being on IV Zosyn and clinically, she did not look as well. Yesterday evening, she underwent a CT scan of her abdomen and pelvis because of the difficulty of her surgery and it does show some fluid collections which might represent early abscesses. She also has evidence by CT scan of left lower lobe pneumonia. Her white blood cell count has increased from 17 to 20. Her hematocrit is stable at 31%. Electrolytes are within normal limits with a BUN of 13 and creatinine is 0.4. She remains on TPN for nutrition and we have kept an NG tube in place. She has had no bowel movement since surgery. She admits to some flatus. I have reviewed her CT scan with our radiologist and we will plan CT-guided drainage of two fluid collections, one on the left side of her abdomen and one more anteriorly. She also had some fluid involving the subcutaneous tissue just above her umbilicus and I will open that area of the wound. Vancomycin has been added to her antibiotic of Zosyn. Her heart rate is 82, blood pressure 131/51, O2 saturation 96%. She is afebrile but she is on IV Tylenol. She has had more abdominal distention and pain over the last 24 hours. cc: Argelia Dover MD
--- NOTE | 2019-12-03 13:06 | Diag Imaging Result Doc PS360 ---
EXAM: CT DRAIN ABDOMEN ABSCESS W/IMG 12/03/2019 HISTORY: Intra-abdominal abscess TECHNIQUE: CT guided abdominal/pelvic fluid drainage x2 COMMENT: The risks and benefits of the procedure including the possibility of bleeding, introduction of infection, puncture of hollow viscus and reaction to lidocaine was discussed with the patient and she agreed to the procedure. Initially, the patient was positioned supine and a preliminary scan was performed demonstrating bilateral contrast throughout the small bowel and in the ascending colon. The fluid collections which were described previously in the anterior left pelvis and in the area of the left iliac fossa superiorly are again demonstrated. The more inferior located anterior fluid collection was initially drained with a 12-Tajik pigtail catheter following sterile preparation of the skin and administration of 1% lidocaine to the skin and deeper soft tissues. Drainage consisted of serosanguineous appearing fluid which was sent to the laboratory for Gram stain and cultures. The second portion of the procedure to drain the fluid collection in the superior left iliac fossa region was performed after the patient was removed from the scanner due to an emergency case from the emergency room, the patient was placed on the scanner subsequent to this and another speed operator scan was performed. Following sterile preparation of the skin laterally and administration 1% lidocaine to the skin and deeper soft tissues including the abdominal wall musculature, the 12-Tajik pigtail catheter was inserted and a small amount of serosanguineous fluid was aspirated. The catheter was placed to suction. The sample was sent to the laboratory for Gram stain and culture. IMPRESSION: Successful CT-guided percutaneous drainage x2. Electronically signed by Romeo Stewart 12/03/2019 1:04 PM
[2019-12-03] MEDS: PHENERGAN IV PRN (13:09)
[2019-12-03] MEDS: LIPOSYN 20% 250 ML IV SCH ×2 (14:58→17:29)
[2019-12-03] MEDS: POTASSIUM CHLORIDE IV SCH ×16 (18:35→23:38)
[2019-12-03] MEDS: MAGNESIUM SULFATE IV SCH ×16 (18:35→23:38)
[2019-12-03] MEDS: [UNRECOGNIZED DRUG - OTHER] IV SCH ×16 (18:35→23:38)
[2019-12-03] MEDS: TPN ELECTROLYTES IV SCH ×16 (18:35→23:38)
[2019-12-03] MEDS: DIFLUCAN 200 MG/NS 200 MG/100 ML IVPB IV SCH (19:48)
[2019-12-03] MEDS: XALATAN 0.005% OPH SOLN BOTH EYES SCH (21:08)
--- NOTE | 2019-12-04 00:21 | PULMONOLOGY PROGRESS NOTE ---
DATE: 12/03/2019 SUBJECTIVE: The patient underwent CT scan of the abdomen and pelvis this morning which revealed left basilar pneumonia with effusion, with loculated peritoneal fluid collections. She underwent 2 percutaneous drain placements per Dr. Stewart. Serosanguineous fluid was identified from both areas. She reports she has had a long day, but otherwise feels well. OBJECTIVE: The patient has been afebrile for the last 24 hours. Blood pressure 137/60, heart rate 82, respiratory rate 23, oxygen saturation 99%. HEENT: Pupils are equal and reactive. Oropharynx appears clear. Neck is supple. Chest reveals decreased breath sounds, left base. Cardiac exam: S1, S2. Abdomen is soft. Surgical dressings have been placed over a portion of her opened abdominal wound. LABORATORY DATA: White blood count 19.9, hemoglobin 9.9, platelet count 429,000. IMPRESSION: 1. Left lower lobe pneumonia/consolidation/atelectasis. 2. Small to moderate left-sided pleural effusion. 3. Protein-calorie malnutrition. 4. Peritonitis. 5. Leukocytosis. PLAN: 1. Drainage as outlined above from the 2 major peritoneal fluid collections. 2. Continue bronchial hygiene. 3. Continue current antibiotics pending results of culture data. cc: Marcel Ruiz MD
[2019-12-04] MEDS ORDERED: BLISTEX MEDICATED BERRY LIP BALM TOP ONE (00:27)
[2019-12-04] MEDS: ZOSYN 3.375 GM in NS 50 ML IV SCH ×4 (02:20→23:54)
[2019-12-04] MEDS: HUMULIN R SUBQ SCH ×5 (02:22→21:45)
[2019-12-04] MEDS: MORPHINE IV PRN ×5 (02:27→22:27)
[2019-12-04] MEDS: PHENERGAN IV PRN ×2 (05:32→23:54)
[2019-12-04] MEDS: OFIRMEV 1000 MG/ISOTONIC SOLN 1,000 MG/100 ML BOTTLE IV SCH ×4 (05:32→22:59)
--- NOTE | 2019-12-04 09:02 | PROGRESS NOTE ---
DATE: 12/04/2019 SUBJECTIVE: Ms. Turner states she feels better this morning, had a pretty good night. She had intra-abdominal abscess drainage, CT-guided abdominal pelvic fluid drainage x2, successful CT- guided percutaneous drainage x2. EXAM: General: Today awake and alert. HEENT: Pupils are equal and round. Lungs: Clear in all lung coy. Cardiovascular: Regular rhythm and rate without murmur or S3. Abdomen: Soft. Bandage in midline and drain left side of the abdomen. Vital Signs: Remains afebrile, temperature 98.5 degrees, pulse 80, respirations 18, blood pressure 128/68. Extremities: No pedal edema. : Urine output was 3300. ASSESSMENT AND PLAN: 1. Left lower lobe pneumonia consolidation atelectasis. Respiratory status doing better. 2. Small to moderate left-sided pleural effusion. 3. Protein calorie malnutrition, getting total parenteral nutrition. 4. Abdominal abscess with drainage yesterday, CT-guided. 5. Status post lysis of adhesions and intra-abdominal abscess. Still has a nasogastric tube in place. She is passing gas. Continue her physical therapy. REVIEW OF ORDERS: I do not see much of a change. She is on Zosyn 3.375 g IV q. 6 hours, vancomycin 1.1 g IV q. 12 hours, and fluconazole 200 mg IV q. 24 hours. cc: Elvis Duke MD
[2019-12-04] MEDS: VANCOMYCIN 1,100 MG in NS 250 ML IV SCH (09:05)
[2019-12-04] MEDS: LOVENOX SUBQ SCH (09:06)
[2019-12-04] MEDS: PROTONIX IV SCH (09:06)
[2019-12-04] MEDS: SODIUM CHLORIDE 0.9% INJ SCH (09:06)
[2019-12-04 11:00] LABS: AGAP 15; ALB/GLOB RATIO 0.6; ALBUMIN 2.6 g/dL (3.5-5.0); ALKALINE PHOSPHATASE 204 U/L (32-104); BUN 11 mg/dL (8-22); CALCIUM 8.7 mg/dL (8.8-10.2); CHLORIDE 100 mmol/L (98-107); CHOLESTEROL 139 mg/dL (0-200); COSMO 283; CREATININE 0.5 mg/dL (0.5-0.9); ESTIMATED GFR > 60; GLUCOSE 247 mg/dL (70-104); GOT 21 U/L (10-30); GPT 21 U/L (10-36); MAGNESIUM 2.1 mg/dL (1.5-2.7); PHOSPHORUS 2.7 mg/dL (2.7-4.5); POTASSIUM 3.5 mmol/L (3.5-5.1); SODIUM 138 mmol/L (136-145); TCO2 23 mmol/L (25-35); TOTAL BILIRUBIN 0.38 mg/dL (0.20-1.00); TOTAL PROTEIN 6.7 g/dL (6.3-8.3); TRIGLYCERIDES 379 mg/dL (35-135)
[2019-12-04 11:51] LABS: PREALBUMIN 12.1 mg/dL (20-40)
[2019-12-04] MEDS: LIPOSYN 20% 250 ML IV SCH (16:28)
--- NOTE | 2019-12-04 17:08 | PROGRESS NOTE ---
DATE: 12/04/2019 Ms. Angelic Turner is now postop day 10 from a 5 hour lysis of adhesions, small bowel resection and repair of small bowel enterotomies. She is now on the floor from the ICU. Yesterday she underwent a CT-guided drainage of 2 fluid collections intra-abdominally and this appeared to be serous fluid. It did not appear to be pus or bowel fluid. These drains were not draining. They were both placed on the left side of her abdomen so I removed him this evening. Of note is the dye that we placed through the NG tube force the CT scan has made it all the way to her rectum, and there was no leakage of the dye out of the small bowel through an anastomosis or repair of an enterotomy. There is a lot of inflammation intra-abdominally. We decided to remove her NG tube and see how she tolerates it her tube. She has been on the bedside commode several times and says that she cannot have a bowel movement, and I think tomorrow we can make sure she is not impacted or begin giving her some enemas to clean out the stool out of her colon. She has a wound infection superior aspect of the wound. It still has purulence draining. I opened the wound and I have been cleaning it with hydrogen peroxide and redressing it daily. She had an increasing white blood cell count. Vancomycin and an antifungal have been added to her antibiotics for her for her abdomen. She still has a central venous line in place, right subclavian, and she is receiving TPN and lipids intermittently because her triglycerides get elevated. She has a left- sided pneumonia and Dr. Ruiz has been helping with her care. We have left her Dean catheter tube in place. She has been good about trying to get in the chair and work with physical therapy. Her heart rate is 84, blood pressure 135/51, O2 saturation 99%. She is afebrile. We did not get a white blood cell count today. Her electrolytes are within normal limits. BUN is 11, creatinine 0.5. Her sugar has been a little bit high. Her liver function tests are normal. cc: Argelia Dover MD
--- NOTE | 2019-12-04 21:31 | PULMONOLOGY PROGRESS NOTE ---
DATE: 12/04/2019 SUBJECTIVE: The patient reports she has had a pretty good day. Her NG tube has been removed. She is using her incentive spirometry and is having some cough and sputum production. OBJECTIVE: Vital Signs: The patient has been afebrile for the last 24 hours. Blood pressure 135/51, heart rate 84, respiratory rate 20, oxygen saturation 99% on room air. HEENT: Pupils are equal and reactive. Oropharynx appears clear. Neck: Is supple. Chest: Reveals diminished breath sounds left base. Cardiac exam: S1-S2. Abdomen: Is soft. There is a midline dressing in place. Previously placed CT-guided drains have been removed. LABORATORIES: Abdominal culture is pending additional incubation. IMPRESSION: A 64-year-old with 1. Left lower lobe pneumonia. 2. Small to moderate left-sided pleural effusion. 3. Surgical wound infection. 4. Leukocytosis. PLAN: 1. Continue bronchial hygiene. 2. Continue current antibiotic regimen pending results of culture data. 3. CBC tomorrow. cc: Marcel Ruiz MD
[2019-12-04] MEDS: SODIUM CHLORIDE 0.9% INJ PRN (23:54)
[2019-12-05] MEDS: DIFLUCAN 200 MG/NS 200 MG/100 ML IVPB IV SCH (00:36)
[2019-12-05] MEDS: VANCOMYCIN 1,100 MG in NS 250 ML IV SCH (01:42)
[2019-12-05] MEDS: LIPOSYN 20% 250 ML IV SCH (02:48)
[2019-12-05] MEDS: MAGNESIUM SULFATE IV SCH ×8 (02:49)
[2019-12-05] MEDS: POTASSIUM CHLORIDE IV SCH ×8 (02:49)
[2019-12-05] MEDS: TPN ELECTROLYTES IV SCH ×8 (02:49)
[2019-12-05] MEDS: [UNRECOGNIZED DRUG - OTHER] IV SCH ×8 (02:49)
[2019-12-05] MEDS: MORPHINE IV PRN ×2 (03:09→23:18)
[2019-12-05] MEDS: HUMULIN R SUBQ SCH ×6 (03:23→19:11)
[2019-12-05] MEDS: XALATAN 0.005% OPH SOLN BOTH EYES SCH ×2 (03:24→23:38)
[2019-12-05] MEDS: OFIRMEV 1000 MG/ISOTONIC SOLN 1,000 MG/100 ML BOTTLE IV SCH ×4 (05:46→23:22)
[2019-12-05] MEDS: ZOSYN 3.375 GM in NS 50 ML IV SCH ×3 (06:13→19:13)
[2019-12-05 07:03] LABS: BASO# 0.02 X1000 (0.0-0.2); BASO% 0.1 % (0.0-0.8); EOS# 0.13 X1000 (0.0-0.7); EOS% 0.8 % (0.0-10.0); HEMATOCRIT 29.4 % (37.0-47.0); HEMOGLOBIN 9.3 g/dL (12.0-16.0); IMM GRAN# 0.07 X1000 (0.0-0.04); IMM GRAN% 0.4 % (0.0-0.5); LYMPH# 1.51 X1000 (1.2-3.4); LYMPH% 9.2 % (20.5-51.1); MCH 27.5 PG (27-31); MCHC 31.6 g/dL (33-37); MONO# 0.98 X1000 (0.11-0.59); MPV 10.6 FL (7.4-10.4); NEUT# 13.63 X1000 (1.4-6.5); NEUT% 83.5 % (42.2-75.2); PLT 610 X1000 (130-400); RBC 3.38 XMIL (4.2-5.4); RDW 15.2 % (11.5-14.5); WBC 16.34 X1000 (4.8-10.8)
[2019-12-05 07:27] LABS: AGAP 15; BUN 12 mg/dL (8-22); CALCIUM 8.7 mg/dL (8.8-10.2); CHLORIDE 103 mmol/L (98-107); COSMO 289; CREATININE 0.5 mg/dL (0.5-0.9); ESTIMATED GFR > 60; GLUCOSE 268 mg/dL (70-104); MAGNESIUM 1.9 mg/dL (1.5-2.7); PHOSPHORUS 2.6 mg/dL (2.7-4.5); POTASSIUM 3.6 mmol/L (3.5-5.1); SODIUM 140 mmol/L (136-145); TCO2 22 mmol/L (25-35)
--- NOTE | 2019-12-05 08:56 | PROGRESS NOTE ---
DATE: 12/05/2019 SUBJECTIVE: Ms. Turner is getting some ice chips. She is passing gas, but has not had a bowel movement. She states she is comfortable. Abdomen does not hurt. No nausea this morning. OBJECTIVE: Vital Signs: Temperature 98.3 degrees, pulse 80, respirations 18, blood pressure 126/63. Eyes: Pupils are equal and round. Lungs: Clear in all lung coy. Cardiovascular exam: Regular rhythm and rate without murmur or S3. : Urine output is 3600 mL. Blood sugar 251, 211 and 230. ASSESSMENT AND PLAN: 1. Left lower lobe pneumonia, which is improving. 2. Small to moderate left-sided pleural effusion. 3. She is postoperative day 11, a five-hour procedure lysis of adhesions, small bowel resection, repair of small bowel enterotomies, and then underwent CT-guided drainage of 2 fluid collections intra-abdominally, appeared to be serous fluid. Did not see any sign of pus in the bowel fluid, and Dr. Dover is following. These drains apparently are not draining. Both placed in the left side of her abdomen, so they were removed. The dye they placed in the nasogastric tube on CT scan made it all the way to the rectum. No leakage of dye out of small bowel, so seems to be advancing. Continue present measures. Physical therapy is involved. REVIEW OF HER ORDERS: I do not see any change at this point. She is on TPN. She is still getting vancomycin 1100 mg IV q. 12 hours. Getting Zosyn 3.375 g IV q. 6 hours, and fluconazole 200 mg IV q. 24 hours. cc: Elvis Duke MD
[2019-12-05] MEDS: PROTONIX IV SCH (10:26)
[2019-12-05] MEDS: LOVENOX SUBQ SCH (10:26)
[2019-12-05] MEDS: SODIUM CHLORIDE 0.9% INJ SCH (10:26)
[2019-12-05] MEDS: PHENERGAN IV PRN ×2 (13:27→23:37)
[2019-12-05] MEDS: SODIUM CHLORIDE 0.9% INJ PRN (13:28)
[2019-12-05] MEDS ORDERED: VANCOMYCIN 1,100 MG in NS 250 ML IV SCH (13:30)
[2019-12-05] MEDS: VANCOMYCIN 1,500 MG in NS 250 ML IV SCH (16:30)
--- NOTE | 2019-12-05 19:07 | PULMONOLOGY PROGRESS NOTE ---
DATE: 12/05/2019 SUBJECTIVE: Ms. Velarde states that she is feeling better today. She is taking in ice chips. Actually she states that she is getting hungry and plans to ask surgery about advancing her diet. OBJECTIVE: Vital Signs: Blood pressure is 126/63 with a heart rate of 83, respirations 18, temperature 98.3 degrees with O2 saturations 100% on room air. Eyes: Pupils are equal, round, react to light. EOMs are intact. Sclerae: Anicteric. HEENT: Head is normocephalic, atraumatic. Mucous membranes are dry. Neck: Supple with trachea midline. Cardiovascular: Regular rate and rhythm. S1 and S2 are appreciated. She has no lower extremity edema. Calves are nontender bilateral with peripheral pulses palpable x4 extremities. Respiratory: Pulmonary breath sounds are clear, diminished in the bases. Chest rises and falls symmetric respiration. Chest wall is nontender to palpation. Gastrointestinal: Abdomen is soft, nontender, nondistended. Abdomen: Soft, nondistended. She is tender along the midline surgical incision. Dressing is dry and intact. Neurologic: She is alert and oriented x3. Skin: Warm and dry. LABS: WBC is 16.3 with hemoglobin 9.3, hematocrit 29.4, platelets of 610,000. Sodium 140, potassium 3.6, BUN 12, creatinine 0.5 with glucose ranging from 255 to 268. Microbiology: Abdomen culture is growing gram-negative rods. ASSESSMENT: This is a 64-year-old female with: 1. Left lower lobe pneumonia. 2. Small to moderate left-sided pleural effusion. 3. Surgical wound infection followed by General Surgery. 4. Leukocytosis with preliminary culture gram-negative rods. PLAN: 1. We will continue bronchial hygiene. 2. Continue current antibiotic regimen and further antibiotics will be culture driven. 3. BMP, CBC, magnesium phosphorus. in am. Dictated by SINDHU Porter for Marcel Ruiz MD cc: SINDHU Porter MD [facility]
--- NOTE | 2019-12-05 20:05 | PROGRESS NOTE ---
DATE: 12/05/2019 Ms. Angelic Turner's drainage from the upper part of her midline incision is improving. I cleansed that wound again today with hydrogen peroxide. She has had an NG tube out now for 24 hours and she has had no vomiting. Her abdomen is slightly distended but not tightly so. She states she has had some gas but no bowel movement. She is still getting TPN and essentially is NPO. Her white blood cell count is decreased from 20 to 16 her heart rate is 84, blood pressure 145/68, O2 saturation 98%. She remains afebrile. Her hematocrit is 30% and stable. Her BUN and creatinine are 12 and 0.5. Her glucose is elevated a wound in the 232 to 268, range. Triglycerides were also elevated. PLAN: We will continue TPN. We will leave her NPO this evening. This weekend we will work on her having a bowel movement, possibly give her some enemas, certainly do a rectal exam, check for impaction and follow her clinical course. cc: Argelia Dover MD
[2019-12-06] MEDS: TPN ELECTROLYTES IV SCH ×8 (02:49)
[2019-12-06] MEDS: MAGNESIUM SULFATE IV SCH ×8 (02:49)
[2019-12-06] MEDS: POTASSIUM CHLORIDE IV SCH ×8 (02:49)
[2019-12-06] MEDS: [UNRECOGNIZED DRUG - OTHER] IV SCH ×8 (02:49)
[2019-12-06] MEDS: DIFLUCAN 200 MG/NS 200 MG/100 ML IVPB IV SCH (02:50)
[2019-12-06] MEDS: ZOSYN 3.375 GM in NS 50 ML IV SCH ×4 (02:50→18:06)
[2019-12-06] MEDS: HUMULIN R SUBQ SCH ×6 (03:07→21:56)
[2019-12-06] MEDS: VANCOMYCIN 1,500 MG in NS 250 ML IV SCH ×2 (03:57→15:08)
[2019-12-06 05:31] LABS: BASO# 0.05 X1000 (0.0-0.2); BASO% 0.3 % (0.0-0.8); EOS# 0.12 X1000 (0.0-0.7); EOS% 0.7 % (0.0-10.0); HEMATOCRIT 30.6 % (37.0-47.0); HEMOGLOBIN 9.5 g/dL (12.0-16.0); IMM GRAN# 0.08 X1000 (0.0-0.04); IMM GRAN% 0.5 % (0.0-0.5); LYMPH# 1.75 X1000 (1.2-3.4); LYMPH% 10.9 % (20.5-51.1); MCH 27.2 PG (27-31); MCV 87.7 FL (81-99); MONO# 1.19 X1000 (0.11-0.59); MONO% 7.4 % (1.7-9.3); MPV 10.4 FL (7.4-10.4); NEUT# 12.92 X1000 (1.4-6.5); NEUT% 80.2 % (42.2-75.2); PLT 711 X1000 (130-400); RBC 3.49 XMIL (4.2-5.4); RDW 15.3 % (11.5-14.5); WBC 16.11 X1000 (4.8-10.8)
[2019-12-06] MEDS: OFIRMEV 1000 MG/ISOTONIC SOLN 1,000 MG/100 ML BOTTLE IV SCH ×5 (06:12→22:12)
[2019-12-06 08:10] LABS: AGAP 14; BUN 12 mg/dL (8-22); CALCIUM 8.8 mg/dL (8.8-10.2); CHLORIDE 103 mmol/L (98-107); COSMO 284; CREATININE 0.5 mg/dL (0.5-0.9); ESTIMATED GFR > 60; GLUCOSE 250 mg/dL (70-104); MAGNESIUM 1.7 mg/dL (1.5-2.7); PHOSPHORUS 2.7 mg/dL (2.7-4.5); SODIUM 138 mmol/L (136-145); TCO2 21 mmol/L (25-35)
--- NOTE | 2019-12-06 09:24 | PROGRESS NOTE ---
DATE: 12/06/2019 OBJECTIVE: Vital Signs: The patient has remained afebrile, temperature 98.9 degrees, pulse 80, respirations 20, blood pressure 140/70. Eyes: Pupils are equal and round. Neck: No distended neck veins. Lungs: Clear in all lung coy. Cardiovascular exam: Regular rhythm and rate without murmur or S3. Abdomen: Abdomen is soft. Skin: Skin is warm and dry. : Urine output is 3400 mL. Blood sugar 230, 201, 211. ASSESSMENT: 1. The patient had a bowel movement yesterday, so trying her on some soft food. 2. Left lower lobe pneumonia, well treated. 3. Small to moderate left-sided pleural effusion. 4. Leukocytosis, aware. That seems to be coming down. MEDICATIONS: 1. She is on fluconazole 200 mg IV q. 24 hours. 2. She is getting Protonix 40 mg IV q. 24 hours. 3. Zosyn 3.375 g IV q. 6 hours. 4. Total parenteral nutrition. 5. Vancomycin 1500 mg IV q. 12 hours. PLAN: We will maybe try some liquids today. Full liquid diet and see how we do, and then advance her to soft food. cc: Elvis Duke MD
[2019-12-06] MEDS: LOVENOX SUBQ SCH (09:42)
[2019-12-06] MEDS: PROTONIX IV SCH (09:45)
[2019-12-06] MEDS: PHENERGAN IV PRN ×2 (13:09→21:55)
--- NOTE | 2019-12-06 14:27 | PROGRESS NOTE ---
DATE: 12/06/2019 SUBJECTIVE: Miss Angelic Turner has walked the halls today. She has been given liquids. She has tolerated an NG tube out for 2 days. She is still having some drainage from her wound, which I am cleaning and dressing daily with hydrogen peroxide. She is still getting TPN. Her heart rate is 83, blood pressure 143/72, O2 saturation 98%. She is afebrile. She has had several soft or loose bowel movements since I have seen her yesterday. Her white blood cell count remains 16 despite multiple IV antibiotics. Her hematocrit is stable at 30%. Her BUN and creatinine are 12 and 0.5. Her sugar has been a little bit elevated. Her abdomen is distended, but not tightly so. She has had a little nausea and has been given Phenergan. cc: Argelia Dover MD
--- NOTE | 2019-12-06 17:43 | PULMONOLOGY PROGRESS NOTE ---
DATE: 12/06/2019 SUBJECTIVE: Ms. Turner states she is feeling better. She is sitting up in the chair. She is taking in some liquids. States that she is hungry. OBJECTIVE: Vital Signs: Blood pressure is 140/70 with heart rate of 80. Respirations are 18, temperature is 97.7 with room air saturations 97% to 98%. Eyes: Pupils equal, round, and react to light. EOMs are intact. Sclerae anicteric. HENT: Head is normocephalic, atraumatic. Mucous membranes are dry. Neck: Supple with trachea midline. Cardiovascular: Regular rate and rhythm. S1 and S2 are appreciated. No murmur. She has no lower extremity edema with peripheral pulses palpable x4 extremities. Pulmonary: Breath sounds are clear. They are diminished in the bases. Chest rises and falls symmetrically with respiration. Gastrointestinal: Abdomen is soft, nontender, nondistended with bowel sounds in all 4 quadrants. Dressing is dry and intact. Neurologic: She is alert and oriented x3. Skin: Warm and dry. LABS: WBCs 16.1 with hemoglobin 9.5, hematocrit 30.6, platelets of 711. Sodium 138, potassium 4, BUN 12, creatinine 0.5, blood sugar of 250. ASSESSMENT: This is a 64-year-old female with: 1. Left lower lobe pneumonia. 2. Small to moderate left-sided pleural effusion. 3. Klebsiella pneumoniae from abdominal culture. 4. Leukocytosis. PLAN: 1. Continue bronchial hygiene. 2. Continue current antibiotic regimen. Antibiotics to be culture driven. 3. Diet has been advanced, states tolerating well Dictated by SINDHU Porter for Marcel Ruiz MD cc: SINDHU Porter MD [facility]
[2019-12-06] MEDS: MORPHINE IV PRN (21:55)
[2019-12-06] MEDS: XALATAN 0.005% OPH SOLN BOTH EYES SCH (21:55)
[2019-12-06] MEDS: SODIUM CHLORIDE 0.9% INJ PRN (21:55)
[2019-12-07] MEDS: DIFLUCAN 200 MG/NS 200 MG/100 ML IVPB IV SCH (01:39)
[2019-12-07] MEDS: HUMULIN R SUBQ SCH ×6 (01:44→23:31)
[2019-12-07] MEDS: ZOSYN 3.375 GM in NS 50 ML IV SCH ×5 (01:47→19:10)
[2019-12-07] MEDS: VANCOMYCIN 1,500 MG in NS 250 ML IV SCH (02:39)
[2019-12-07] MEDS: MORPHINE IV PRN ×2 (04:01→23:31)
[2019-12-07] MEDS: OFIRMEV 1000 MG/ISOTONIC SOLN 1,000 MG/100 ML BOTTLE IV SCH ×4 (04:02→23:30)
[2019-12-07] MEDS: MAGNESIUM SULFATE IV SCH ×8 (04:02)
[2019-12-07] MEDS: POTASSIUM CHLORIDE IV SCH ×8 (04:02)
[2019-12-07] MEDS: TPN ELECTROLYTES IV SCH ×8 (04:02)
[2019-12-07] MEDS: [UNRECOGNIZED DRUG - OTHER] IV SCH ×8 (04:02)
[2019-12-07 08:00] LABS: AGAP 13; BUN 12 mg/dL (8-22); CALCIUM 8.3 mg/dL (8.8-10.2); CHLORIDE 103 mmol/L (98-107); COSMO 286; CREATININE 0.4 mg/dL (0.5-0.9); ESTIMATED GFR > 60; GLUCOSE 215 mg/dL (70-104); MAGNESIUM 1.8 mg/dL (1.5-2.7); PHOSPHORUS 2.6 mg/dL (2.7-4.5); POTASSIUM 3.2 mmol/L (3.5-5.1); SODIUM 140 mmol/L (136-145); TCO2 24 mmol/L (25-35)
[2019-12-07] MEDS: PROTONIX IV SCH (09:25)
[2019-12-07] MEDS: SODIUM CHLORIDE 0.9% INJ SCH (09:25)
[2019-12-07] MEDS: LOVENOX SUBQ SCH (09:25)
[2019-12-07] MEDS ORDERED: POTASSIUM CHLORIDE 40 MEQ/SWI 40 MEQ/100 ML IVPB IV ONE (10:10)
--- NOTE | 2019-12-07 10:27 | PROGRESS NOTE ---
DATE: 12/07/2019 SUBJECTIVE: Ms. Turner is better. Her bowels are moving. She is tolerating a soft diet well. OBJECTIVE: Temperature 98.7 degrees, pulse 80, respirations 20, blood pressure 147/73. Pupils are equal and round. Lungs are clear in all lung coy. Cardiovascular Examination: Regular rhythm and rate without murmur or S3. Abdomen is soft. Skin is warm and dry. Her urine output is 3700 mL. Blood sugar 211, 213, 192, and 217. ASSESSMENT/PLAN: 1. Left lower lobe pneumonia. 2. Small to moderate left-sided pleural effusion. 3. Klebsiella pneumoniae from abdominal culture. 4. Leukocytosis. 5. She has had several loose bowel movements. Her hematocrit appears stable and tolerating a soft diet. She is postoperative day, I think this is the 13th day. Had a 5 hour procedure, lysis of adhesions following that small bowel resection and repair of small bowel enterotomies. Making slow progress. Continue physical therapy. ORDERS: Looking over orders, I do not see any change. LABS: Looking over her lab, hematocrit is 30, hemoglobin 9. Electrolytes: Sodium 140, potassium 3.2, chloride 103, BUN 12, creatinine 0.4. We will make sure we give her some potassium. cc: Elvis Duke MD
--- NOTE | 2019-12-07 10:58 | PROGRESS NOTE ---
DATE: 12/07/2019 Ms. Angelic Turner is now 13 days out from extensive lysis of adhesions and small-bowel resection. Over the last several days, she has had regular bowel movements, including this morning. Her abdomen remains slightly distended but she is having bowel activity. She has had an NG tube out for several days now without any nausea or vomiting. She has been placed on liquids and she seems to be tolerating sips of those. Her white blood cell count remains elevated and she is on multiple antibiotics. She continues to be on TPN. She still has a Dean catheter tube in place, mostly for convenience of her getting up. She does try to get up and sit in a chair. She has been good about that. Her heart rate is 80, blood pressure 147/73, O2 saturation is 100%, she is afebrile. She is awake and cooperative this morning. We do not have a white blood cell count today. Her BUN and creatinine are 12 and 0.4. Her sugar has been a little bit high since she has been on TPN. We will continue liquids. We will increase those to full liquids. We will continue to increase her activity. I will leave her Dean catheter tube in for today but that probably will have to come out first of the week. She has a superficial wound infection. I have opened the superior part of her wound. It continues to drain and we will have to continue daily wound care for that. cc: Argelia Dover MD
--- NOTE | 2019-12-07 14:12 | PULMONOLOGY PROGRESS NOTE ---
DATE: 12/07/2019 SUBJECTIVE: Ms. Turner states that she is feeling much better today. She does have an increased appetite. She is tolerating full liquids well. OBJECTIVE: Vital Signs: Blood pressure is 147/70, with a heart rate of 80, respirations 20, temperature is 98.7 degrees oral, with room air saturations of 100%. Eyes: Pupils equal, round, react to light. EOMs are intact. Sclerae are anicteric. HENT: Head is normocephalic, atraumatic. Mucous membranes are moist. Neck: Supple with trachea midline. Cardiovascular: Regular rate and rhythm. S1 and S2 appreciated. No murmur. She has no lower extremity edema. Calves are nontender bilaterally, with peripheral pulses palpable x4 extremities. Pulmonary: Breath sounds are clear, diminished at the bases. No increased work of breathing noted. Chest rises and falls symmetric with respiration. Gastrointestinal: Abdomen is soft, nontender, nondistended with bowel sounds in all 4 quadrants. Midline dressing is dry and intact. Neurologic: She is alert and oriented x3. Skin: Warm and dry. LABORATORY DATA: Sodium is 140, with potassium of 3.2, BUN 12, creatinine 0.4, with a glucose of 215. IMPRESSION: This is a 64-year-old female with: 1. Left lower lobe pneumonia. 2. [id number] left-sided pleural effusion. 3. Klebsiella pneumoniae abdominal infection. 4. Leukocytosis. PLAN: 1. Will continue bronchial hygiene. 2. Continue current antibiotic regimen. Dictated by SINDHU Porter for Marcel Ruiz MD cc: SINDHU Porter MD
[2019-12-07] MEDS: VANCOMYCIN 1,800 MG in NS 250 ML IV SCH (16:30)
[2019-12-07] MEDS: XALATAN 0.005% OPH SOLN BOTH EYES SCH (20:00)
[2019-12-08] MEDS: DIFLUCAN 200 MG/NS 200 MG/100 ML IVPB IV SCH (00:58)
[2019-12-08] MEDS: TPN ELECTROLYTES IV SCH ×8 (02:16)
[2019-12-08] MEDS: POTASSIUM CHLORIDE IV SCH ×8 (02:16)
[2019-12-08] MEDS: [UNRECOGNIZED DRUG - OTHER] IV SCH ×8 (02:16)
[2019-12-08] MEDS: MAGNESIUM SULFATE IV SCH ×8 (02:16)
[2019-12-08] MEDS: HUMULIN R SUBQ SCH ×6 (02:17→21:38)
[2019-12-08] MEDS: ZOSYN 3.375 GM in NS 50 ML IV SCH ×4 (02:17→21:38)
[2019-12-08] MEDS: VANCOMYCIN 1,800 MG in NS 250 ML IV SCH ×2 (03:53→15:54)
[2019-12-08] MEDS: OFIRMEV 1000 MG/ISOTONIC SOLN 1,000 MG/100 ML BOTTLE IV SCH ×2 (05:12→12:48)
[2019-12-08 08:27] LABS: AGAP 14; BUN 12 mg/dL (8-22); CALCIUM 8.8 mg/dL (8.8-10.2); CHLORIDE 102 mmol/L (98-107); COSMO 283; CREATININE 0.5 mg/dL (0.5-0.9); ESTIMATED GFR > 60; GLUCOSE 200 mg/dL (70-104); MAGNESIUM 1.7 mg/dL (1.5-2.7); PHOSPHORUS 2.3 mg/dL (2.7-4.5); POTASSIUM 3.5 mmol/L (3.5-5.1); SODIUM 139 mmol/L (136-145); TCO2 23 mmol/L (25-35)
[2019-12-08] MEDS: PROTONIX IV SCH (09:22)
[2019-12-08] MEDS: SODIUM CHLORIDE 0.9% INJ SCH (09:22)
[2019-12-08] MEDS: LOVENOX SUBQ SCH (09:23)
--- NOTE | 2019-12-08 10:26 | PROGRESS NOTE ---
DATE: 12/08/2019 SUBJECTIVE: Ms. Turner'jasmin bowels are moving. She is a little stronger. Tolerating physical therapy. Still getting TPN. OBJECTIVE: Temperature 98.7 degrees, pulse 84, respirations 16, blood pressure 139/74. Pupils are equal and round. Lungs are clear in all lung coy. Cardiovascular Examination: Regular rhythm and rate without murmur or S3. Urine output is 3800 mL. ASSESSMENT AND PLAN: 1. Left lower lobe pneumonia, which I think is resolved. 2. Small to moderate left-sided pleural effusion. 3. Klebsiella pneumoniae abdominal infection. 4. Leukocytosis. 5. She had extensive lysis of adhesions, small bowel resection. She has had regular bowel movements in the last couple days and we have advanced her diet. Seems to be doing better. She had her nasogastric tube taken out. No nausea or vomiting. Continues on total parenteral nutrition. She has a Dean catheter in place, mostly for convenience. Continue physical therapy. Hopefully, she gets to go home soon. Seems to be progressing in the right direction. REVIEW OF HER ORDERS: She is on fluconazole 200 mg IV q.24 hours. She is on Lovenox 40 mg subcutaneous q.24 hours, Protonix 40 mg IV q.24 hours. We will change that to p.o. Zosyn 3.375 g IV q.6 hours, vancomycin 1800 mg IV q.12. We will continue current regimen of antibiotics and continue to get her up and ambulate. Hopefully, we can go home soon. Repeat another chest x-ray today. cc: Elvis Duke MD
--- NOTE | 2019-12-08 12:52 | Diag Imaging Result Doc PS360 ---
EXAM: CHEST-PORTABLE INDICATION: pneumonia TECHNIQUE: One view COMPARISON: 12/03/2019 FINDINGS: The right central line is in stable position. There is persistent mild consolidation at the left lung base but it has improved somewhat. No new consolidation is appreciated. Cardiac silhouette is stable. IMPRESSION: Improvement of left basilar consolidation as described. Electronically signed by Carlito Sierra 12/08/2019 12:50 PM
--- NOTE | 2019-12-08 17:22 | PROGRESS NOTE ---
DATE: 12/08/2019 SUBJECTIVE: Ms. Angelic Turner continues to have regular bowel activity. She is tolerating full liquids and we will advance her diet to a diabetic diet. We will stop her TPN and will remove her Dean catheter tube in the morning. She still has some purulence draining from 1 area of her midline wound and we are changing the dressing and cleaning the wound daily. She remains on IV antibiotics. She walked the halls today. OBJECTIVE: Her heart rate is 83. Blood pressure 148/71, O2 saturation 96%. She is afebrile. ASSESSMENT/PLAN: She remains on IV Zosyn and vancomycin. She is also receiving Diflucan. We will stop her Ofirmev and start transitioning her medicine from IV to p.o. We have not had a recent white blood cell count. We will check that with tomorrow's labs. A chest x- ray, seems somewhat improved this morning. cc: Argelia Dover MD [facility]
[2019-12-08] MEDS: XALATAN 0.005% OPH SOLN BOTH EYES SCH (21:38)
[2019-12-08] MEDS: TYLENOL PO PRN (21:53)
[2019-12-09] MEDS: DIFLUCAN 200 MG/NS 200 MG/100 ML IVPB IV SCH (01:16)
[2019-12-09] MEDS: HUMULIN R SUBQ SCH ×6 (01:30→22:04)
[2019-12-09] MEDS: VANCOMYCIN 1,800 MG in NS 250 ML IV SCH (04:36)
[2019-12-09] MEDS: TYLENOL PO PRN ×2 (06:41→23:08)
[2019-12-09 07:08] LABS: BASO# 0.05 X1000 (0.0-0.2); BASO% 0.4 % (0.0-0.8); EOS# 0.21 X1000 (0.0-0.7); EOS% 1.7 % (0.0-10.0); HEMATOCRIT 32.1 % (37.0-47.0); HEMOGLOBIN 9.9 g/dL (12.0-16.0); IMM GRAN% 0.8 % (0.0-0.5); LYMPH# 2.01 X1000 (1.2-3.4); LYMPH% 16.3 % (20.5-51.1); MCH 26.7 PG (27-31); MCHC 30.8 g/dL (33-37); MCV 86.5 FL (81-99); MONO# 1.54 X1000 (0.11-0.59); MONO% 12.5 % (1.7-9.3); MPV 9.8 FL (7.4-10.4); NEUT# 8.41 X1000 (1.4-6.5); NEUT% 68.3 % (42.2-75.2); PLT 843 X1000 (130-400); RBC 3.71 XMIL (4.2-5.4); RDW 14.9 % (11.5-14.5); WBC 12.32 X1000 (4.8-10.8)
[2019-12-09 07:38] LABS: EOS 2 % (1-10); LYMPHS 18 % (21-51); MONO 8 % (1-9); SEGS 70 % (42-75)
[2019-12-09 07:39] LABS: HYPOCHROM 1+
[2019-12-09] MEDS: ZOSYN 3.375 GM in NS 50 ML IV SCH ×4 (08:36→22:29)
[2019-12-09] MEDS: LOVENOX SUBQ SCH (09:01)
--- NOTE | 2019-12-09 15:48 | PROGRESS NOTE ---
DATE: 12/09/2019 SUBJECTIVE: This patient states that she is feeling better. She is tolerating her diet, her diet has been advanced yesterday to a diabetic diet. It looks like she has been having bowel movements is a bit loose as per the patient. We have a wound culture from 12/03/2019 that showed Klebsiella pneumonia that is sensitive to Zosyn. In the other hand, she is on fluconazole and vancomycin per Pulmonary Department, she has a left lower lobe pneumonia that seems to be improving, vital signs are stable. OBJECTIVE: Vital Signs: Temperature 98.3 degrees, pulse 93, respiratory 16, blood pressure 134/56, oxygen saturation 98 on room air. HEENT: Head normocephalic, no trauma. PERRLA. Neck: Supple. No JVD. No masses. Central trachea. Chest: Clear to auscultation. Crepitus at the left base with some rhonchi as well. Abdomen: Soft, generalized tenderness to palpation especially at the mid area, she has a dressing covering the mid area with some blood in it. Extremities: No edema, no clubbing, no cyanosis. Neurological: The patient is awake, alert, she is oriented x3. No focal deficits. LABORATORY: WBC 12.3, hemoglobin 9.9, hematocrit 32.1, platelet 843,000, glucose 178. ASSESSMENT AND PLAN: 1. Small bowel obstruction status post exploratory laparotomy with extensive lysis of adhesions, small bowel resection with primary end-to-end anastomosis and repair of small-bowel enterotomy, this procedure was done on 11/24/2019, she seems to be more stable. We will continue to monitor. She has been tolerating p.o. and having some bowel movement. 2. Left lower lobe pneumonia which is much better. Pulmonary Department on board. Continue with antibiotics. 3. Klebsiella pneumoniae abdominal infection, continue with Zosyn which is sensitive. 4. Leukocytosis. This is getting better. 5. History of tobacco use, aware. This patient has been advised against tobacco use. I will continue with daily cessation education. 6. Respiratory failure which has resolved. 7. Diabetes stable. Continue with same management for now. cc: Jon Pena MD
[2019-12-09] MEDS: NORCO-10 PO PRN (16:07)
--- NOTE | 2019-12-09 16:30 | PROGRESS NOTE ---
DATE: 12/09/2019 Ms. Turner is now postop day 15, each day she seems to be getting better. She has been great about getting up in a chair and even walking the halls. She still has some drainage of her midline incision but the drainage is decreasing. She has been advanced to a regular diet. She seems to have tolerated some of that diet and she continues to have regular bowel movements. This morning I took her Dean catheter tube out, we stopped her TPN and lipids. Her white blood cell count has decreased to 12, her hematocrit is 32%. Her heart rate is 89 to 90, blood pressure is 151/87, O2 saturation 100%. She has had a low-grade temperature 99.5 degrees. PLAN: We will continue IV antibiotics. I will continue midline wound care and will see how she tolerates her meals. cc: Argelia Dover MD
[2019-12-09] MEDS: VANCOMYCIN 1,900 MG in NS 500 ML IV SCH (18:22)
--- NOTE | 2019-12-09 22:21 | PULMONOLOGY PROGRESS NOTE ---
DATE: 12/09/2019 SUBJECTIVE: The patient is sitting up in her bed. She is taking some p.o. intake. She is having flatus and bowel movements. She has ambulated short distances in the morales. She continues to have some drainage from her wound site. OBJECTIVE: The patient has been afebrile for the last 24 hours. Blood pressure 151/87, heart rate 90, respiratory rate 16, oxygen saturation 98%. HEENT: Pupils are equal and reactive. Oropharynx appears clear. Neck is supple. Chest reveals decreased breath sounds, left base. Cardiac exam: S1, S2. Abdomen is soft. Surgical dressing is not removed. Extremities reveal trace edema. LABORATORY DATA: White blood count 12.32, hemoglobin 9.9, platelet count 483,000. IMPRESSION: A 64-year-old with: 1. Left lower lobe pneumonia. 2. Small effusion. 3. Leukocytosis, with improvement on antibiotics. 4. Abdominal infection, status post prolonged lysis of adhesions. PLAN: 1. Continue bronchial hygiene. 2. Continue to ambulate as tolerated. 3. Continue current antibiotic regimen. 4. Follow up 2-view chest x-ray tomorrow. cc: Marcel Ruiz MD
[2019-12-09] MEDS: XALATAN 0.005% OPH SOLN BOTH EYES SCH (22:28)
[2019-12-10] MEDS: DIFLUCAN 200 MG/NS 200 MG/100 ML IVPB IV SCH (00:25)
[2019-12-10] MEDS: HUMULIN R SUBQ SCH ×5 (04:48→21:16)
[2019-12-10] MEDS: NORCO-10 PO PRN ×3 (05:02→21:10)
[2019-12-10] MEDS: ZOSYN 3.375 GM in NS 50 ML IV SCH ×4 (05:15→21:09)
[2019-12-10] MEDS: VANCOMYCIN 1,900 MG in NS 500 ML IV SCH ×2 (06:49→17:44)
[2019-12-10 07:10] LABS: BASO# 0.05 X1000 (0.0-0.2); BASO% 0.5 % (0.0-0.8); EOS# 0.28 X1000 (0.0-0.7); EOS% 2.6 % (0.0-10.0); HEMATOCRIT 30.5 % (37.0-47.0); HEMOGLOBIN 9.4 g/dL (12.0-16.0); IMM GRAN# 0.07 X1000 (0.0-0.04); IMM GRAN% 0.7 % (0.0-0.5); LYMPH# 1.62 X1000 (1.2-3.4); LYMPH% 15.2 % (20.5-51.1); MCHC 30.8 g/dL (33-37); MCV 87.6 FL (81-99); MONO# 1.48 X1000 (0.11-0.59); MONO% 13.9 % (1.7-9.3); MPV 9.7 FL (7.4-10.4); NEUT# 7.18 X1000 (1.4-6.5); NEUT% 67.1 % (42.2-75.2); PLT 813 X1000 (130-400); RBC 3.48 XMIL (4.2-5.4); WBC 10.68 X1000 (4.8-10.8)
[2019-12-10 07:12] LABS: AGAP 14; BUN 12 mg/dL (8-22); CALCIUM 9.2 mg/dL (8.8-10.2); CHLORIDE 103 mmol/L (98-107); CHOLESTEROL 165 mg/dL (0-200); COSMO 283; CREATININE 0.6 mg/dL (0.5-0.9); ESTIMATED GFR > 60; GLUCOSE 130 mg/dL (70-104); GOT 32 U/L (10-30); MAGNESIUM 1.7 mg/dL (1.5-2.7); PHOSPHORUS 3.5 mg/dL (2.7-4.5); POTASSIUM 3.6 mmol/L (3.5-5.1); SODIUM 141 mmol/L (136-145); TCO2 24 mmol/L (25-35); TRIGLYCERIDES 249 mg/dL (35-135)
--- NOTE | 2019-12-10 08:04 | Diag Imaging Result Doc PS360 ---
EXAM: CHEST-2 VIEWS 12/10/2019 HISTORY: abnormal exam TECHNIQUE: PA and lateral chest COMMENT: There is blunting of the left costophrenic angle. There is minimal bibasilar atelectasis worse on the left than the right. The heart size and pulmonary vascularity are within normal limits. IMPRESSION: Minimal left pleural effusion. Bibasilar subsegmental atelectasis. Electronically signed by Romeo Stewart 12/10/2019 8:02 AM
[2019-12-10] MEDS: LOVENOX SUBQ SCH (10:09)
--- NOTE | 2019-12-10 14:28 | PROGRESS NOTE ---
DATE: 12/10/2019 SUBJECTIVE: This patient states that she is feeling better. She is tolerating her diet. Her diet has been advanced. She has been having some bowel movements. She had a wound culture that from 12/03/2019 that showed Klebsiella pneumoniae and sensitive to Zosyn. She has also been on fluconazole and vancomycin per Pulmonary department. She has left lower lobe pneumonia and seems to be improving. Vital signs are stable. OBJECTIVE: Vital Signs: Temperature 98.5 degrees, pulse 94, respiratory rate 16, blood pressure 135/69, oxygen saturation 99% on 2 L of nasal cannula. HEENT: Head; normocephalic. No trauma. PERRLA. Neck: Supple. No JVD. No masses. Central trachea. Chest: Clear to auscultation, some crepitus at the left base. Abdomen: Soft. Generalized tenderness to palpation especially around the surgical area. The wound is covered with a dressing. The lower part is draining some yellowish drainage. Extremities: No edema no clubbing, no cyanosis. Neurological: Patient is awake alert she is oriented x3. No focal deficits. LABORATORY: WBC 10.6, hemoglobin 9.4, hematocrit 30.5, platelets 813,000. Sodium 141, potassium 3.6, chloride 103, bicarbonate 24, BUN 12, creatinine 0.6, glucose 132, calcium 9.2, phosphorus 3.5, magnesium 1.7. ASSESSMENT AND PLAN: 1. Small bowel obstruction status post exploratory laparotomy with extensive lysis of adhesions. A small-bowel resection with primary end-to-end anastomosis and repair of small bowel enterotomy. This procedure was done on 11/24/2019. She seems to be more stable. The wound is draining some yellowish fluid mostly at the end of the wound. It looks like she has some small openings at the end of the wound as well. 2. Left lower lobe pneumonia, which is much better. Pulmonary department on board. Continue with antibiotics for now. 3. Klebsiella pneumonia, abdominal wound infection. Continue with Zosyn, which is sensitive. 4. Leukocytosis, getting better. Actually is normal today. 5. Respiratory failure which has resolved. 6. History of tobacco use, aware. 7. Diabetes. Continue with same management. I have requested PT and OT evaluation. We will continue with same management. Once surgery department states that this patient is good to go, as well as the Pulmonary department, I will discharge this patient home, but I feel she is getting better. cc: Jon Pena MD
--- NOTE | 2019-12-10 17:39 | PROGRESS NOTE ---
DATE: 12/10/2019 SUBJECTIVE: Ms. Angelic Turner continues to improve daily. Her last white blood cell count is now normal. Her hematocrit stable at 30%. Her appetite is still not normal but she is trying. Nurses record that she eats about 75% of her meals. She is having flatus and she is having regular bowel movements. OBJECTIVE: Her abdomen may be slightly distended. Midline incision has decreased drainage and is mostly intact. Her heart rate is 90 to 92. Blood pressure 134/78, O2 saturation 97%. She is afebrile. DIAGNOSTIC DATA: Electrolytes are within normal limits. BUN is 12 creatinine 0.6. Chest x-ray is improved. ASSESSMENT/PLAN: She has been good about sitting up. She has even ambulated in the halls. We will see how her appetite improves over the next 24 hours. Possibly home soon. cc: Argelia Dover MD
[2019-12-10] MEDS: XALATAN 0.005% OPH SOLN BOTH EYES SCH (21:10)
--- NOTE | 2019-12-10 23:53 | PULMONOLOGY PROGRESS NOTE ---
DATE: 12/10/2019 SUBJECTIVE: The patient is awake, alert and conversant. She has been ambulating in the hallway. She has been having bowel movements and is tolerating p.o. intake. OBJECTIVE: The patient has been afebrile for the last 24 hours. Blood pressure 135/77, heart rate 89, respiratory rate 14, oxygen saturation 98% on room air. HEENT: Pupils are equal and reactive. Oropharynx appears clear. Neck is supple. Chest reveals minimal crackles at the left base. Cardiac exam: S1, S2. Abdomen is soft, with surgical dressing in place. Extremities without edema. LABORATORY DATA: White blood count 10.68, hemoglobin 9.4, platelet count 813,000. Sodium 141, potassium 3.6, chloride 103, bicarbonate 24, BUN 12, creatinine 0.6, glucose 130. DIAGNOSTIC DATA: Chest x-ray reveals minimal blunting and atelectasis at the left base, but no significant effusion or pneumonia. IMPRESSION: A 64-year-old with: 1. Left lower lobe pneumonia which is resolving. 2. Small effusion, which is resolving. 3. Leukocytosis, which has now normalized. 4. Abdominal wound infection. PLAN: 1. Continue bronchial hygiene. 2. Continue ambulation as tolerated. 3. With continued improvement, anticipate discharge home soon. cc: Marcel Ruiz MD
[2019-12-11] MEDS: ZOSYN 3.375 GM in NS 50 ML IV SCH ×3 (00:17→11:41)
[2019-12-11] MEDS: DIFLUCAN 200 MG/NS 200 MG/100 ML IVPB IV SCH (01:12)
[2019-12-11] MEDS: VANCOMYCIN 1,900 MG in NS 500 ML IV SCH (06:50)
[2019-12-11] MEDS: HUMULIN R SUBQ SCH (06:56)
[2019-12-11 07:39] LABS: AGAP 15; BUN 10 mg/dL (8-22); CALCIUM 9.4 mg/dL (8.8-10.2); CHLORIDE 105 mmol/L (98-107); COSMO 288; CREATININE 0.7 mg/dL (0.5-0.9); ESTIMATED GFR > 60; GLUCOSE 178 mg/dL (70-104); POTASSIUM 3.2 mmol/L (3.5-5.1); SODIUM 143 mmol/L (136-145); TCO2 23 mmol/L (25-35)
[2019-12-11] MEDS: LOVENOX SUBQ SCH (09:05)
[2019-12-11] MEDS: NORCO-10 PO PRN (09:25)
[2019-12-11] MEDS ORDERED: NEOSPORIN OINTMENT PACKET TOP ONE (11:53)
[2019-12-11 12:01] VITALS: BP 142/67
--- NOTE | 2019-12-11 21:01 | DISCHARGE SUMMARY ---
ADMISSION DATE: 11/20/2019 DISCHARGE DATE: 12/11/2019 PRINCIPAL PROCEDURES: Extensive lysis of adhesions, small bowel resection, and repair of enterotomy, Dr. Dover on 11/25/2019. DISCHARGE DISABILITY: Full. DISCHARGE DIET: Is regular. DISCHARGE DISPOSITION: Will get home health care to see her midline wound and I will see her in my outpatient office in 7 to 10 days. DISCHARGE MEDICATIONS: She is to return to her home medications. HOSPITAL COURSE: Ms. Angelic Turner is a 64-year-old black female who has had previous colon surgery by Dr. Benitez. It appears that her left and transverse colon were removed and her ascending colon was sewn to her rectum. Her lysis of adhesions was very difficult. It lasted 5 hours and she suffered multiple enterotomies during the procedure. I had to remove some of her mid small bowel because of injury and scarring. We also had to repair a small bowel enterotomy. After surgery she went to the ICU and remained ventilated. We had to give her TPN after surgery because she kept an NG tube for at least a week. She slowly recovered her bowel function. She was transferred to the floor and we introduced liquids and then advanced her diet over the second week. Other complications were midline wound infection. Part of her wound had to be opened. She had pneumonia after surgery and Dr. Titus Ruiz was consulted for critical care and pulmonary care. The hospitalist also helps with care of the patient. We also sent her down for CT scan the second week postop to have some intra-abdominal fluid collections drained when her white blood cell count was elevated despite her IV antibiotics. It appeared to be serous fluid. Those drains were quickly removed. They were put on the left side of her abdomen in fluid collections. She had no evidence of small bowel fistula throughout her postoperative course and at discharge we were caring for her midline wound. Her appetite was satisfactory. She was having regular bowel function and she was good about walking in the room and in the halls. Her and family wanted to take her home with home health with followup in my outpatient offices. I will probably keep her on p.o. antibiotics because of her wound and pneumonia. She knows to contact me with any problems. cc: Argelia Dover MD
--- NOTE | 2019-12-12 13:35 | DISCHARGE SUMMARY ---
ADMISSION DATE: 11/20/2019 DISCHARGE DATE: 12/11/2019 DISCHARGE DIAGNOSES: 1. Small-bowel obstruction status post exploratory laparotomy with extensive lysis of adhesions, small-bowel resection with primary end-to-end anastomosis and repair of small-bowel enterotomy, procedure was done on 11/24/2019. 2. Left lower lobe pneumonia. 3. Klebsiella pneumoniae abdominal wound infection. 4. Leukocytosis, resolved. 5. Respiratory failure, resolved. 6. History of tobacco use. 7. Diabetes. PROCEDURES PERFORMED: 1. Abdomen and pelvis CT scan dated 11/20/2019 impression, distal small-bowel obstruction possible due to volvulus or adhesion. Abdomen x-ray dated 11/22/2019 impression, distal small-bowel obstruction. 2. Chest x-ray dated 11/24/2019 impression, no post procedural pneumothorax. Chest x-ray dated 11/25/2019 impression, development of atelectasis versus a tiny infiltrate in the right costophrenic angle. 3. Chest x-ray dated 11/27/2019 impression, improvement of mild right basilar atelectasis, essentially stable chest otherwise. 4. Chest x-ray dated 11/28/2019 stable chest. 5. Abdomen x-ray dated 12/02 impression no evidence of small-bowel obstruction. Chest x-ray dated 12/03/2019 impression interval worsening. There is now infiltrates in the left lower lung with atelectasis and a small pleural effusion. Abdomen and pelvis CT scan dated 12/02/2019 impression left lower lobe pneumonia and pleural effusion, loculated peritoneal fluid collection and stranding in the mesenteric fat which may be indicated of peritonitis, improved small-bowel obstruction, postsurgical changes as described. 6. Chest x-ray dated 12/03/2019 impression no change from prior. 7. Abscess drainage CT scan dated 12/03/[address]-guided percutaneous drainage x2. 8. Chest x-ray dated 12/08/2019 impression improvement of the left basilar consolidation. Chest x-ray dated 12/10/2019 impression minimal left pleural effusion, bibasilar segmental atelectasis. HOSPITAL COURSE: 64-year-old female with a past medical history of diabetes, left hemicolectomy, cholecystectomy, hernia repair, hysterectomy and breast reduction. She was admitted on 11/21/2019 and apparently she presented to emergency department with 3 days history of persistent nausea, vomiting and abdominal pain, the abdominal pain was described as cramping and she states that she was not feeling well. The image showed a small bowel obstruction, case has been discussed with Surgery Department and she was admitted afterwards. At the time of the admitting doctor examination the patient denied any headache, fever, chills, chest pain, shortness of breath, hemoptysis or any weight changes. Surgery Department evaluated this patient. She was placed on fluid resuscitation and NG tube was placed and treat her symptomatically. Then surgery has decided to start this patient on a liquid diet to see how she does. On 11/25/2019 she was taken to the OR and they did an extensive lysis of adhesions lasting 5 hours, a small bowel resection with primary end-to-end anastomosis and repair of the small bowel enterotomy, also they placed a right subclavian central venous line. She was status post extensive surgery so she ended up with some hypoxemic respiratory failure, atelectasis at the level of the right lung base, mild lactic acidosis so she was evaluated by Pulmonary Department. We noticed at some point of her hospitalization that this patient's bowel function really was slow and was really hard for recovery due to the extensive lysis of adhesions and of course her bowel was fragile so they were slow to feed her but the patient was recovering slowly. She still was having abdominal distention and a CT of the abdomen and pelvis was done. She was placed on antibiotics the whole time. She was having elevated white blood cell count despite of IV Zosyn, CT scan showed loculated peritoneal fluid collection and stranding in the mesenteric fat which may be indicative of peritonitis. The case was discussed with Radiology Department and they did a successful CT- guided percutaneous drainage of that fluid, will continue with antibiotics. The patient started having some pneumonia which was treated successfully and actually she will go home with antibiotics, microbiology showed a culture with Klebsiella pneumonia coming from the abdomen, she was on Zosyn which is sensitive to this bacteria. The patient's bowel function started to recover and she was slowly eating and having more bowel function, she was breathing better, she was ambulating by herself, having more bowel movements. Today the patient has been evaluated by Surgery Department who decided to discharge this patient. We will continue with antibiotics and she will be follow up by Surgery Department Dr. Dover in 1 week. Upon discharge the patient was in a stable medical condition tolerating p.o. and ambulating and having bowel function/bowel movements. Vital signs: Temperature 97.5 degrees, pulse 90 respiratory rate 16, blood pressure 142/67, oxygen saturation 100% on room air. HEENT: Head normocephalic, no trauma. PERRLA. Neck: Supple. No JVD, no masses. Central trachea. Chest: Clear to auscultation. Some crepitus at the bases. Abdomen: Soft, generalized tenderness to palpation especially around the surgical area. The wound is covered with a dressing, it looks fine. Extremities: No edema, no clubbing, no cyanosis. Neurological: The patient is awake, alert, she is oriented x3. No focal deficits. LABORATORY: Sodium 143, potassium 3.2, chloride 105, bicarbonate 23, BUN 10, creatinine 0.7, glucose 178, calcium 9.4. DISCHARGE MEDICATIONS: Colace 100 mg p.o. b.i.d., Depue 10 q.6 hours as needed, latanoprost eye drops at bedtime, Protonix 40 mg p.o. daily, Januvia 100 mg p.o. daily, Bactrim DS 1 tablet p.o. b.i.d. for 7 days and Ambien 10 mg p.o. at bedtime as needed for insomnia. FOLLOWUP: With Dr. Dover in 1 week and follow with her primary care doctor in 1 week as well. TIME SPENT: 40 minutes. cc: Jon Pena MD
== END 2019-12-11 13:33 | disposition home health service (06) | DRG 329 ==
LOC: ED 19:18 → SUATTDRO 19:19 → 3N 11-21 00:41 → SUATTDRO 11-21 00:41 → ICU 11-24 20:51 → 4N 12-01 16:08
PROVIDERS: ATTEND Internal Medicine